=== PATIENT | male | born 1995 | race Two or more races ===

== ENCOUNTER 2020-09-22 15:47 | Inpatient (IN) | payer MEDICAID ==
[~2020-09-22] VITALS: Ht 172.7 cm; Wt 100.7 kg
[2020-09-22] MEDS ORDERED: InsuLIN REG 1unit/0.01ml Soln (100units/ml) IV ONE ×2 (16:30→19:45)
[2020-09-22] MEDS ORDERED: SODIUM CHLORIDE 0.9% 1,000 ML IV ONE (16:30)
[2020-09-22 16:47] LABS: Basophils # (auto) 0.1 10 ^3/uL (0-0.2); Eosinophils # (auto) 0.2 10 ^3/uL (0-0.8); Hemoglobin 15.7 g/dL (13.5-17.5)
[2020-09-22 16:49] LABS: Basophils % (auto) 0.9 % (0.0-2.0); Eosinophils % (auto) 2.3 % (0.0-7.0); Lymphocytes # (auto) 1.7 10 ^3/uL (0.4-5.4); Lymphocytes % (auto) 23.7 % (10.0-50.0); Mean Corpuscular Hemoglobin 34.9 pg (28.0-32.0); Mean Corpuscular Hgb Conc. 36.6 g/dL (32.0-36.0); Mean Corpuscular Volume 95.2 fL (80.0-100.0); Monocytes # (auto) 0.7 10 ^3/uL (0-1.3); Monocytes % (auto) 9.9 % (0.0-12.0); Neutrophils # (auto) 4.6 10 ^3/uL (1.6-8.6); Neutrophils % (auto) 63.2 % (37.0-80.0); Nucleated Red Blood Cells % 0.2 %; Platelet Count (auto) 268 10^3/uL (140-450); Red Blood Cells 4.51 10^6/uL (4.5-5.90); Red Cell Distribution Width 13.2 % (11.8-14.3); White Blood Cell 7.3 10^3/uL (4.4-10.8)
[2020-09-22 16:53] LABS: Albumin 3.4 g/dL (3.4-5.0); Potassium 4.6 mmol/L (3.5-5.1)
[2020-09-22 17:01] LABS: Bilirubin, Total 0.8 mg/dL (0.2-1.0)
[2020-09-22 18:02] LABS: BUN/Creatinine Ratio 6.3; Calcium 7.5 mg/dL (8.5-10.1)
[2020-09-22] MEDS ORDERED: DEXTROSE (50%) 50ML SYRG IV PRN ×2 (18:30→19:45)
[2020-09-22] MEDS ORDERED: SODIUM CHLORIDE 0.9% 1,000 ML IV SCH ×3 (18:30→23:45)
[2020-09-22] MEDS ORDERED: INSULIN LANTUS (GLARGINE) 1 /0.01ml (100units/ml) SC ONE (18:30)
[2020-09-22] MEDS ORDERED: InsuLIN R (HUMAN) 100 UNITS in SODIUM CHL 0.9% 99 ML IV SCH (18:30)
[2020-09-22 19:04] LABS: Basophils # (auto) 0.1 10 ^3/uL (0-0.2); Basophils % (auto) 0.8 % (0.0-2.0); Eosinophils # (auto) 0.2 10 ^3/uL (0-0.8); Eosinophils % (auto) 2.3 % (0.0-7.0); Hematocrit 45.7 % (41.0-53.0); Hemoglobin 16.1 g/dL (13.5-17.5); Lymphocytes # (auto) 1.9 10 ^3/uL (0.4-5.4); Lymphocytes % (auto) 26.4 % (10.0-50.0); Mean Corpuscular Hemoglobin 33.3 pg (28.0-32.0); Mean Corpuscular Hgb Conc. 35.2 g/dL (32.0-36.0); Mean Corpuscular Volume 94.6 fL (80.0-100.0); Monocytes # (auto) 0.6 10 ^3/uL (0-1.3); Monocytes % (auto) 8.4 % (0.0-12.0); Neutrophils # (auto) 4.4 10 ^3/uL (1.6-8.6); Neutrophils % (auto) 62.1 % (37.0-80.0); Nucleated Red Blood Cells % 0.5 %; Platelet Count (auto) 228 10^3/uL (140-450); Red Blood Cells 4.83 10^6/uL (4.5-5.90); White Blood Cell 7.1 10^3/uL (4.4-10.8)
[2020-09-22 19:18] LABS: Magnesium 2.4 mg/dL (1.6-2.6); Potassium 4.5 mmol/L (3.5-5.1)
[2020-09-22 19:22] LABS: Phosphorus 1.7 mg/dL (2.5-4.90)
[2020-09-22 19:26] LABS: BUN/Creatinine Ratio 9.1; Calcium 7.5 mg/dL (8.5-10.1)
[2020-09-22] MEDS ORDERED: MORPHINE SULF INJ 2 MG/ML SYRINGE 1ML IV PRN ×2 (19:45)
[2020-09-22] MEDS: ACCU-CHEK COMFORT CURVE STRIP VI SCH ×3 (19:45→22:30)
[2020-09-22] MEDS ORDERED: ACETAMINOPHEN 500 MG TAB PO PRN (19:45)
[2020-09-22] MEDS ORDERED: NITROGLYCERIN 0.4 MG SL TAB SL PRN (19:45)
[2020-09-22] MEDS ORDERED: hydrALAZINE HCL 20 MG/ML VL IV PRN (19:45)
[2020-09-22] MEDS ORDERED: LORazepam 0.5 MG TAB PO PRN (19:45)
[2020-09-22] MEDS: SODIUM CHLORIDE 0.9% 1,000 ML IV SCH ×2 (20:05→21:45)
[2020-09-22 22:32] VITALS: BP 141/83
--- NOTE | 2020-09-22 22:32 | NUR ---
Telemetry admit from [facility] admitted to Telemetry unit. Patient oriented to BRAXTON RYAN RN primary RN, unit, room, bed, and unit policies regarding patient care and visiting hours. Patient now on continuous telemetry monitoring, tele box #29 and telemetry reading on arrival to unit is sinus tachy 100. Patient placed on bedside oxygen, weighed by bed scale and encouraged to call if they need something. Safety measures maintained by keeping the bed locked in lowest position, 2 side rails up, personal items and call light within reach. All questions and concerns addressed, patient verbalized understanding.
[2020-09-22 22:55] VITALS: BP 141/83
[2020-09-22 23:14] LABS: Urine Bacteria FEW /hpf (None Seen); Urine Blood TRACE /uL (Negative); Urine Mucus FEW (None Seen); Urine WBC 1 /hpf (0 - 3)
[2020-09-22 23:25] LABS: Alcohol, Urine < 3.0 mg/dL (0-10); Amphetamine Screen, Urine NEGATIVE (NEGATIVE); Barbiturate Scree,Urine NEGATIVE (NEGATIVE); Benzodiazephine Screen, Urine NEGATIVE (NEGATIVE); Cannabinoid Screen, Urine NEGATIVE (NEGATIVE); Cocaine Screen, Urine NEGATIVE (NEGATIVE); Opiate Scree,Urine NEGATIVE (NEGATIVE); Phencyclidine Screen, Urine NEGATIVE (NEGATIVE)
--- NOTE | 2020-09-23 | NUR ---
Paged Hospitalist Patient has no sliding scale ordered
[2020-09-23] MEDS: ACCU-CHEK COMFORT CURVE STRIP VI SCH ×3 (00:25→11:32)
--- NOTE | 2020-09-23 00:25 | NUR ---
Spoke to Hospitalist Ordered Moderate ACHS sliding scale
[2020-09-23] MEDS ORDERED: SODIUM CHLORIDE 0.9% 1,000 ML IV SCH (00:30)
[2020-09-23] MEDS: SODIUM CHLORIDE 0.9% 1,000 ML IV SCH ×2 (01:45→08:25)
[2020-09-23 02:20] LABS: Potassium 4.3 mmol/L (3.5-5.1)
[2020-09-23 02:25] LABS: BUN/Creatinine Ratio 7.2
[2020-09-23] MEDS ORDERED: INSU100I43 SC ×2 (03:32→10:29)
[2020-09-23] MEDS ORDERED: INSLANTI SC ×2 (03:32→10:29)
[2020-09-23 05:00] VITALS: BP 136/81
[2020-09-23 06:03] LABS: Calcium 7.4 mg/dL (8.5-10.1)
[2020-09-23 06:17] LABS: BUN/Creatinine Ratio 7.8
[2020-09-23] MEDS: InsuLIN REG 1unit/0.01ml Soln (100units/ml) SC SCH ×2 (06:39→11:42)
--- NOTE | 2020-09-23 07:30 | NUR ---
Opening Shift Note Assumed care of patient, who is alert and oriented x4. Respirations are even and unlabored. No S/S of distress/SOB or pain. Bed is low, locked with 2x side rails up. Call light is within reach. Instructed on POC and to call for assist PRN, will continue to monitor for changes Q1hr and PRN.
[2020-09-23 08:43] VITALS: BP 122/87
[2020-09-23 09:28] LABS: Calcium 7.3 mg/dL (8.5-10.1); Potassium 3.6 mmol/L (3.5-5.1)
[2020-09-23 09:33] LABS: BUN/Creatinine Ratio 5.9
[2020-09-23] MEDS ORDERED: ENOXAPARIN SOD 40 MG/0.4 ML SYRINGE SC SCH (10:00)
[2020-09-23] MEDS ORDERED: INSULIN LANTUS (GLARGINE) 1 /0.01ml (100units/ml) SC SCH (10:00)
[2020-09-23] MEDS ORDERED: PANTOPRAZOLE 40 MG TAB PO SCH (10:00)
[2020-09-23] MEDS ORDERED: DOCUSATE CALCIUM 240 MG CAP PO SCH (10:00)
[2020-09-23] MEDS ORDERED: LANC-347 XX (10:31)
[2020-09-23 12:45] VITALS: BP 122/87
[2020-09-23 13:02] VITALS: BP 142/90
--- NOTE | 2020-09-23 14:13 | NUR ---
Discharge instructions given as ordered. Encourage to follow up with PMD as instructed. All questions and concerns addressed. Patient verbalized understanding. Educated patient on importance of not stopping insulin medication. Aware that he must follow up with [facility] post discharge clinic or his own PCP. Medication reconciliation form completed and copy given to patient. IV removed with catheter intact, pressure dressing applied. Telemetry unit returned to ICU. Patient ambulated to family vehicle with all personal belongings, accompanied by staff. No distress noted at time of departure.
[2020-09-23 14:19] LABS: Calcium 7.5 mg/dL (8.5-10.1); Potassium 3.8 mmol/L (3.5-5.1)
[2020-09-23 14:41] LABS: BUN/Creatinine Ratio 5.9
[2020-09-23] MEDS ORDERED: InsuLIN REG 1unit/0.01ml Soln (100units/ml) SC SCH (22:00)
== END 2020-09-23 14:15 | disposition home or self-care (01) | DRG 420 ==
LOC: ER 15:47 → ICU CENTRL 15:48 → TELE-CENTR 22:30
PROVIDERS: ADMIT Family Medicine; ATTEND Family Medicine
DX: E10.10 Type 1 diabetes mellitus with ketoacidosis without coma (principal); E83.39 Other disorders of phosphorus metabolism; E83.51 Hypocalcemia; E87.1 Hypo-osmolality and hyponatremia; Z79.4 Long term (current) use of insulin; F10.99 Alcohol use, unspecified with unspecified alcohol-induced disorder; Y90.9 Presence of alcohol in blood, level not specified
CPT/HCPCS: 36415; 36600; 71045; 80048; 80053; 80307; 81001; 82010; 82805; 82962; 83036; 83735; 83930; 84100; 85025; 96361; 96374; 96375; 99291; G0378; J1815

== ENCOUNTER 2021-01-11 20:40 | Inpatient (IN) | payer MEDICAID ==
[~2021-01-11] VITALS: Ht 172.7 cm; Wt 91.4 kg
[~2021-01-11 20:40] MED LIST: INSLANTI SC; INSU100I43 SC; LANC-347 XX
[2021-01-11] MEDS ORDERED: SODIUM CHLORIDE 0.9% 1,000 ML IV ONE (22:45)
[2021-01-11 22:57] LABS: Basophils # (auto) 0.1 10 ^3/uL (0-0.2); Basophils % (auto) 0.4 % (0.0-2.0); Eosinophils # (auto) 0 10 ^3/uL (0-0.8); Lymphocytes # (auto) 0.9 10 ^3/uL (0.4-5.4); Lymphocytes % (auto) 7.1 % (10.0-50.0); Mean Corpuscular Hemoglobin 32.2 pg (28.0-32.0); Mean Corpuscular Hgb Conc. 34.1 g/dL (32.0-36.0); Mean Corpuscular Volume 94.3 fL (80.0-100.0); Monocytes # (auto) 2.1 10 ^3/uL (0-1.3); Neutrophils # (auto) 10.1 10 ^3/uL (1.6-8.6); Neutrophils % (auto) 76.5 % (37.0-80.0); Nucleated Red Blood Cells % 0.2 %; Platelet Count (auto) 143 10^3/uL (140-450); Red Cell Distribution Width 15.6 % (11.8-14.3); White Blood Cell 13.2 10^3/uL (4.4-10.8)
[2021-01-11 23:07] LABS: Albumin 3.6 g/dL (3.4-5.0); Calcium 9.5 mg/dL (8.5-10.1); Potassium 3.6 mmol/L (3.5-5.1)
[2021-01-11 23:16] LABS: Bilirubin, Total 0.9 mg/dL (0.2-1.0); Total Protein 8.8 g/dL (6.4-8.2)
[2021-01-11] MEDS ORDERED: IODIXANOL 320MG/ML 100ML BTL IV ONE (23:19)
[2021-01-11 23:40] LABS: BUN/Creatinine Ratio 5.7
[2021-01-11] MEDS ORDERED: InsuLIN REG 1unit/0.01ml Soln (100units/ml) IV ONE (23:45)
[2021-01-12] VITALS (67 sets, daily range): BP systolic 85–125; BP diastolic 48–76
[2021-01-12 00:19] LABS: Urine Bacteria FEW /hpf (None Seen); Urine Blood 2+ /uL (Negative); Urine Specific Gravity 1.027 (1.001-1.035); Urine WBC 1 /hpf (0 - 3)
[2021-01-12] MEDS ORDERED: InsuLIN R (HUMAN) 100 UNITS in SODIUM CHL 0.9% 99 ML IV SCH ×2 (00:30→04:30)
[2021-01-12] MEDS ORDERED: SODIUM CHLORIDE 0.9% 1,000 ML IV ONE (00:30)
[2021-01-12] MEDS ORDERED: ONDANSETRON HCL 4 MG/2 ML VIAL IV ONE (00:30)
[2021-01-12] MEDS ORDERED: DEXTROSE (50%) 50ML SYRG IV PRN (00:30)
[2021-01-12] MEDS ORDERED: InsuLIN REG 1unit/0.01ml Soln (100units/ml) ONE (00:51)
[2021-01-12] MEDS ORDERED: MORPHINE SULF INJ 2 MG/ML SYRINGE 1ML IV PRN (01:30)
[2021-01-12] MEDS ORDERED: NITROGLYCERIN 0.4 MG SL TAB SL PRN (01:30)
[2021-01-12] MEDS ORDERED: ACCU-CHEK COMFORT CURVE STRIP VI SCH (01:30)
[2021-01-12] MEDS ORDERED: POTASSIUM CHL 20MEQ/100ML 100 ML IV ONE ×2 (02:30→06:42)
[2021-01-12 03:14] LABS: BUN/Creatinine Ratio 7.4; Calcium 8.9 mg/dL (8.5-10.1); Magnesium 2.2 mg/dL (1.6-2.6); Phosphorus 1.1 mg/dL (2.5-4.90)
[2021-01-12] MEDS: ACCU-CHEK COMFORT CURVE STRIP VI SCH ×13 (04:00→22:58)
[2021-01-12] MEDS: D5W/SOD CHL 0.45% 1,000 ML IV SCH ×3 (04:30→17:52)
[2021-01-12 04:33] LABS: Alcohol, Urine < 3.0 mg/dL (0-10); Amphetamine Screen, Urine NEGATIVE (NEGATIVE); Barbiturate Scree,Urine NEGATIVE (NEGATIVE); Benzodiazephine Screen, Urine NEGATIVE (NEGATIVE); Cannabinoid Screen, Urine NEGATIVE (NEGATIVE); Cocaine Screen, Urine NEGATIVE (NEGATIVE); Opiate Scree,Urine NEGATIVE (NEGATIVE); Phencyclidine Screen, Urine NEGATIVE (NEGATIVE)
[2021-01-12 08:32] LABS: Basophils # (auto) 0 10 ^3/uL (0-0.2); Basophils % (auto) 0.3 % (0.0-2.0); Eosinophils # (auto) 0 10 ^3/uL (0-0.8); Hematocrit 41.5 % (41.0-53.0); Hemoglobin 14.4 g/dL (13.5-17.5); Lymphocytes # (auto) 0.6 10 ^3/uL (0.4-5.4); Lymphocytes % (auto) 5.8 % (10.0-50.0); Mean Corpuscular Hgb Conc. 34.7 g/dL (32.0-36.0); Mean Corpuscular Volume 92.1 fL (80.0-100.0); Monocytes # (auto) 1.8 10 ^3/uL (0-1.3); Monocytes % (auto) 15.8 % (0.0-12.0); Neutrophils # (auto) 8.6 10 ^3/uL (1.6-8.6); Neutrophils % (auto) 78.1 % (37.0-80.0); Nucleated Red Blood Cells % 0.1 %; Platelet Count (auto) 108 10^3/uL (140-450); Red Blood Cells 4.51 10^6/uL (4.5-5.90); Red Cell Distribution Width 15.2 % (11.8-14.3); White Blood Cell 11.1 10^3/uL (4.4-10.8)
[2021-01-12 08:35] LABS: Calcium 9.3 mg/dL (8.5-10.1); Magnesium 2.1 mg/dL (1.6-2.6); Potassium 3.5 mmol/L (3.5-5.1)
[2021-01-12 08:44] LABS: BUN/Creatinine Ratio 6.7
[2021-01-12] MEDS ORDERED: SODIUM PHOSPHATES 24 MEQ in SODIUM CHL 0.9% 100 ML IV ONE (09:00)
[2021-01-12] MEDS: ONDANSETRON HCL 4 MG/2 ML VIAL IV PRN ×3 (09:04→20:27)
[2021-01-12] MEDS: PANTOPRAZOLE 40 MG/10 ML VIAL INJ IV SCH (09:04)
[2021-01-12] MEDS: MORPHINE SULF INJ 2 MG/ML SYRINGE 1ML IV PRN ×3 (09:05→20:27)
[2021-01-12] MEDS: InsuLIN R (HUMAN) 100 UNITS in SODIUM CHL 0.9% 99 ML IV SCH ×4 (09:22→22:59)
[2021-01-12] MEDS: SODIUM CHLORIDE 0.9% 1,000 ML IV SCH ×2 (12:06→17:25)
[2021-01-12 12:49] LABS: BUN/Creatinine Ratio 6.7; Calcium 9.4 mg/dL (8.5-10.1); Potassium 3.2 mmol/L (3.5-5.1)
[2021-01-12 18:17] LABS: BUN/Creatinine Ratio 7.3; Calcium 9.2 mg/dL (8.5-10.1)
[2021-01-12 18:19] LABS: Potassium 2.9 mmol/L (3.5-5.1)
[2021-01-12] MEDS: POTASSIUM CHL 20MEQ/100ML 100 ML IV SCH ×2 (20:00→22:16)
[2021-01-12 22:26] LABS: BUN/Creatinine Ratio 7.4; Calcium 9.6 mg/dL (8.5-10.1)
[2021-01-12 22:32] LABS: Potassium 2.8 mmol/L (3.5-5.1)
[2021-01-13] VITALS (83 sets, daily range): BP systolic 90–131; BP diastolic 48–90
[2021-01-13] MEDS: POTASSIUM CHL 20MEQ/100ML 100 ML IV SCH
[2021-01-13] MEDS: SODIUM CHLORIDE 0.9% 1,000 ML IV SCH ×4 (00:05→22:00)
[2021-01-13] MEDS: InsuLIN R (HUMAN) 100 UNITS in SODIUM CHL 0.9% 99 ML IV SCH ×10 (00:30→23:04)
[2021-01-13] MEDS: ACCU-CHEK COMFORT CURVE STRIP VI SCH ×16 (00:30→22:30)
[2021-01-13 04:42] LABS: Basophils # (auto) 0 10 ^3/uL (0-0.2); Basophils % (auto) 0.1 % (0.0-2.0); Eosinophils # (auto) 0 10 ^3/uL (0-0.8); Eosinophils % (auto) 0.2 % (0.0-7.0); Hematocrit 39.4 % (41.0-53.0); Hemoglobin 13.8 g/dL (13.5-17.5); Lymphocytes # (auto) 0.9 10 ^3/uL (0.4-5.4); Lymphocytes % (auto) 9.5 % (10.0-50.0); Mean Corpuscular Hgb Conc. 35.1 g/dL (32.0-36.0); Mean Corpuscular Volume 94.2 fL (80.0-100.0); Monocytes # (auto) 1.6 10 ^3/uL (0-1.3); Neutrophils # (auto) 7.3 10 ^3/uL (1.6-8.6); Neutrophils % (auto) 74.2 % (37.0-80.0); Nucleated Red Blood Cells % 0.1 %; Platelet Count (auto) 101 10^3/uL (140-450); Red Blood Cells 4.19 10^6/uL (4.5-5.90); Red Cell Distribution Width 15.5 % (11.8-14.3); White Blood Cell 9.9 10^3/uL (4.4-10.8)
[2021-01-13 05:49] LABS: Calcium 9.5 mg/dL (8.5-10.1); Magnesium 2.3 mg/dL (1.6-2.6); Potassium 3.3 mmol/L (3.5-5.1)
[2021-01-13 05:59] LABS: BUN/Creatinine Ratio 7.8
[2021-01-13 06:02] LABS: Phosphorus 0.7 mg/dL (2.5-4.90)
[2021-01-13] MEDS: D5W/SOD CHL 0.45% 1,000 ML IV SCH ×4 (08:53→21:00)
[2021-01-13] MEDS ORDERED: POTASSIUM PHOSPHATE IV ONE ×4 (09:30)
[2021-01-13] MEDS ORDERED: SODIUM CHL 0.9% IV ONE ×4 (09:30)
[2021-01-13] MEDS: PANTOPRAZOLE 40 MG/10 ML VIAL INJ IV SCH (10:40)
[2021-01-13 16:46] LABS: BUN/Creatinine Ratio 9.1; Calcium 8.9 mg/dL (8.5-10.1); Magnesium 2.1 mg/dL (1.6-2.6); Phosphorus 1.8 mg/dL (2.5-4.90)
[2021-01-13 22:34] LABS: BUN/Creatinine Ratio 6.8; Calcium 8.4 mg/dL (8.5-10.1)
[2021-01-13 22:43] LABS: Potassium 2.9 mmol/L (3.5-5.1)
[2021-01-14] VITALS (37 sets, daily range): BP systolic 105–135; BP diastolic 56–90
[2021-01-14] MEDS: InsuLIN R (HUMAN) 100 UNITS in SODIUM CHL 0.9% 99 ML IV SCH ×5 (00:37→06:53)
[2021-01-14] MEDS: POTASSIUM CHL 20MEQ/100ML 100 ML IV SCH ×5 (01:21→16:00)
[2021-01-14] MEDS: ACCU-CHEK COMFORT CURVE STRIP VI SCH ×10 (01:30→21:40)
[2021-01-14] MEDS: SODIUM CHLORIDE 0.9% 1,000 ML IV SCH (02:45)
[2021-01-14] MEDS: D5W/SOD CHL 0.45% 1,000 ML IV SCH (03:40)
[2021-01-14] MEDS: PANTOPRAZOLE 40 MG/10 ML VIAL INJ IV SCH (10:14)
[2021-01-14 11:00] LABS: BUN/Creatinine Ratio 4.8; Calcium 8.5 mg/dL (8.5-10.1); Magnesium 1.9 mg/dL (1.6-2.6); Phosphorus 1.8 mg/dL (2.5-4.90)
[2021-01-14 11:01] LABS: Potassium 2.9 mmol/L (3.5-5.1)
[2021-01-14] MEDS ORDERED: POTASSIUM CHL 20 Meq TABLET PO ONE (11:15)
[2021-01-14] MEDS ORDERED: D5W/SOD CHL 0.45% 1,000 ML IV SCH (11:15)
[2021-01-14] MEDS ORDERED: SODIUM PHOSPHATES 20 MEQ in SODIUM CHL 0.9% 100 ML IV ONE (11:15)
[2021-01-14] MEDS ORDERED: DEXTROSE (50%) 50ML SYRG IV PRN ×2 (11:30)
[2021-01-14] MEDS ORDERED: ACCU-CHEK COMFORT CURVE STRIP VI SCH (11:30)
[2021-01-14] MEDS ORDERED: INSULIN LANTUS (GLARGINE) 1 /0.01ml (100units/ml) SC ONE (11:30)
[2021-01-14] MEDS ORDERED: InsuLIN REG 1unit/0.01ml Soln (100units/ml) SC SCH ×3 (11:30→22:00)
[2021-01-14] MEDS: SOD CHL 0.45% 1,000 ML IV SCH ×2 (12:15→20:36)
[2021-01-14] MEDS: InsuLIN REG 1unit/0.01ml Soln (100units/ml) SC SCH ×2 (12:17→16:42)
[2021-01-15] MEDS: SOD CHL 0.45% 1,000 ML IV SCH ×2 (03:44→11:15)
[2021-01-15 05:00] VITALS: BP 137/86
[2021-01-15] MEDS: InsuLIN REG 1unit/0.01ml Soln (100units/ml) SC SCH ×3 (06:20→17:27)
[2021-01-15] MEDS: ACCU-CHEK COMFORT CURVE STRIP VI SCH ×3 (06:20→17:28)
[2021-01-15 06:42] LABS: Albumin 2.6 g/dL (3.4-5.0); Calcium 9.4 mg/dL (8.5-10.1); Potassium 3.4 mmol/L (3.5-5.1)
[2021-01-15 06:57] LABS: BUN/Creatinine Ratio 11.8; Bilirubin, Total 0.6 mg/dL (0.2-1.0)
[2021-01-15 07:30] VITALS: BP 134/83
[2021-01-15] MEDS: PANTOPRAZOLE 40 MG/10 ML VIAL INJ IV SCH (08:57)
[2021-01-15] MEDS ORDERED: INSULIN LANTUS (GLARGINE) 1 /0.01ml (100units/ml) SC SCH ×2 (10:00→22:00)
[2021-01-15 13:00] VITALS: BP 124/79
[2021-01-15 17:04] VITALS: BP 131/84
== END 2021-01-15 19:22 | disposition home or self-care (01) | DRG 420 ==
LOC: ER 20:40 → TELE 20:41 → ICU WEST 01-12 04:02 → CENTRAL 01-14 17:41 → TELE-CENTR 01-14 18:00
PROVIDERS: ADMIT Hospitalist; ATTEND Hospitalist
DX: E11.10 Type 2 diabetes mellitus with ketoacidosis without coma (principal); K85.90 Acute pancreatitis without necrosis or infection, unspecified; R65.10 Systemic inflammatory response syndrome (SIRS) of non-infectious origin without acute organ dysfunction; N17.9 Acute kidney failure, unspecified; E66.01 Morbid (severe) obesity due to excess calories; Z20.822 Contact with and (suspected) exposure to COVID-19; Z79.4 Long term (current) use of insulin; Z71.3 Dietary counseling and surveillance; Z68.30 Body mass index [BMI] 30.0-30.9, adult
CPT/HCPCS: 36415; 36600; 71045; 74176; 80048; 80053; 80307; 81001; 82010; 82150; 82805; 82962; 83036; 83605; 83690; 83735; 83930; 84100; 85025; 87081; 87426; 93005; 96361; 96365; 96375; C9113; G0378; J1815; J2405; J3480; Q9967

== ENCOUNTER 2022-03-21 16:24 | Emergency (ER) | payer MEDICAID ==
[~2022-03-21] VITALS: Ht 172.7 cm; Wt 86.2 kg
[2022-03-21 16:24] VITALS: BP 153/91
== END 2022-03-21 17:18 | disposition home or self-care (01) ==
LOC: ER 16:24
DX: S60.022A Contusion of left index finger without damage to nail, initial encounter (principal); E11.9 Type 2 diabetes mellitus without complications; W22.8XXA Striking against or struck by other objects, initial encounter; Y93.89 Activity, other specified; Y92.89 Other specified places as the place of occurrence of the external cause; Y99.8 Other external cause status
CPT/HCPCS: 73140

== ENCOUNTER 2025-04-28 15:48 | Inpatient (IN) | payer MEDICAID, OTHER ==
[~2025-04-28] VITALS: Ht 172.7 cm; Wt 62.5 kg
--- NOTE | 2025-04-28 16:04 | ED.PDOC ---
GI ASSESSMENT HPI Comments HPI: This is a 29 year old male presenting to the ED with chief complaint of pancreatitis flare up. Patient reports that he has been experiencing bilateral lower rib pain since this morning, which is usually how his pancreatitis flare ups present as. Patient relays that he has drank heavily recently along with having high blood glucose, both causing him flare ups. Patient states he has been compliant with his DM medication and his recent BG was at 133. Patient notes he had associated nausea and and yellow colored vomit. Patient denies any abdominal pain, fever, chills, diarrhea, chest pain, SOB, or headache. Patient was hypotensive in triage and tachycardic. Fluids were initiated. Sepsis protocol initiated. Initial Vitals BP: 86/64 HR: 131 RR: 18 O2 Sat: 100% Temp: 98.1F Past Medical history: DM, Chronic Pancreatitis, anxiety, alcohol abuse Past Surgical history: Empyema resection Medications: Insulin, Gabapentin Social History: Daily ETOH use. Denies smoking and drug use. Allergies: NKDA ryan: HPI: Poor Historian. REVIEW OF SYSTEMS: CONSTITUTIONAL: Denies acute: fever, diaphoresis, chills, HEAD: Denies acute: headache, photophobia Eyes: Denies acute: Double vision, vision loss, eye pain, eye discharge. EARS: Denies acute: tinnitus, hearing loss, ear discharge, ear pain, THROAT: Denies acute: sore throat, swelling, difficulty swallowing , pain with swallowing, change in voice. NECK: Denies acute: neck pain, neck swelling, stiff neck. HEART: Denies acute : chest pain, palpitations, LUNGS: Denies acute: SOB, wheezing, cough, hemoptysis ABDOMEN: Denies acute: diarrhea, melena , hematemesis, hematochezia SKIN: Denies acute: rash, redness, lesions, itchiness. EXTREMITIES: Denies acute: calf pain, numbness, tingling, weakness, denies pain in extremity. Denies acute: Low back pain. Neuro: Denies acute: focal neurological deficit, motor or sensory focal neurological deficit, tremors, seizure like activity, confusion, dizziness, change in mental status, loss of bowel or bladder function, cauda equina like symptoms. : Denies acute: dysuria, hematuria, flank pain, increase in urinary frequency. PSYCH: Denies acute: hallucination, suicidal ideation, homicidal ideation. PHYSICAL EXAM: General: ---[id number]-----acute distress, awake and alert. Head: normocephalic, atraumatic. Neck: supple, trachea is midline, no swelling. Throat: Normal phonation. Eyes:, no erythema, no purulent discharge, no proptosis, no icterus. Heart: regular tachycardic, no significant murmur appreciated. Lungs: no apparent respiratory distress, Able to speak in full sentences. No wheezing, no rhonchi, no crackles. No stridors Clear to auscultation bilaterally. Abdomen: No epigastric pain to palpation, non distended, soft, no guarding, no rebound, + bowel sounds. Patient points specifically to lateral ribcage angles where his pain is. Neuro: Awake, Alert, oriented to name, self, situation, follows commands GCS=15. Speech is normal. Skin: no petechia, no purpura, no cyanosis, non-pale, not jaundice. Lower extremities: --no - Pitting edema no deformity, no focal swelling, no calf TTP. Makes eye contact. moves all four extremities. Face: no apparent facial droop. ED COURSE: DISCLAIMER: This medical document was created using an electronic medical record system with voice recognition software and computerized dictation system. Although this document has been carefully reviewed, there might still be some phonetic and typographical errors. Occasional wrong-word or "sound-alike" substitutions may have occurred due to the inherent limitations of voice recognition software. These areas are purely typographical due to imperfections of the software programs and do not reflect any compromise in the patient's medical care. Please read the chart carefully and recognize, using context, where these substitutions have occurred. Time Seen by MD: 16:01 Primary Care Provider: JONA Reviewed Notes: Medications, Allergies Allergies: Coded Allergies: NO KNOWN ALLERGIES (Unverified , 09/22/20) Home Meds Active Scripts Lancets (Freestyle Lancets) Lancets Mis, UNIT XX PRN PRN, #90 3 Refills Prov:CADEN PEREZ MD 09/23/20 Insulin Lispro (Insulin Lispro) 100 Unit/Ml Inj, 10 UNIT SC ACHS for 90 Days, #90 INJ Please take lispro as per sliding scale Prov:CADEN PEREZ MD 09/23/20 Insulin Glargine (Lantus) 100 Unit/Ml Inj, 10 UNIT SC BID for 90 Days, #90 INJ Prov:CADEN PEREZ MD 09/23/20 Information Source: Patient Mode of Arrival: Ambulatory Was a procedure done? Was a procedure done?: No GI differential Dx Differential Diagnosis: Other (DDX include but not limited to diverticulitis, colitis, gastroenteritis, acute abdomen, SBO, enteritis, constipation, volvulus, appendicitis, Gallbladder disease, choledocolithiasis, ascending cholangitis, pancreatitis, intraAbdominal mass/neoplasm, hepatitis, UTI, pylonephritis, kidney stone, aneurysm, dissection, Inflammatory bowel disease, gastroparesis, ischemic bowel.) X-Ray, Labs, Meds, VS Vital Signs Date Time Temp Pulse Resp B/P (MAP) Pulse Ox O2 Delivery O2 Flow Rate FiO2 04/28/25 20:00 94 04/28/25 19:59 121/84 04/28/25 19:38 98.1 78 18 121/78 (92) 96 98.1 04/28/25 19:38 78 18 96 Room Air* 0 21 04/28/25 17:26 98.8 106 16 100/74 (83) 100 98.8 04/28/25 16:39 109 22 137/115 (122) 100 04/28/25 15:57 98.1 134 18 86/64 (71) 100 98.1 04/28/25 15:56 131 Lab Test 04/28/25 21:25 04/28/25 18:16 04/28/25 17:20 04/28/25 16:37 Range/Units POC Glucose 224 H 154 H 70-106 mg/dl Lactic Acid Level 5.9 *H 0.4-2.0 mmol/L Urine Color Light-yellow Yellow Urine Clarity Clear Clear Urine pH 5.5 5.0-9.0 Urine Specific Mikado 1.010 1.001-1.035 Urine Protein Negative Negative Urine Ketones Negative Negative Urine Blood Negative Negative /uL Urine Nitrite Negative Negative Urine Bilirubin Negative Negative Urine Urobilinogen Normal Negative mg/dL Urine Leukocyte Esterase Negative Negative /uL Urine RBC 1 0 - 3 /hpf Urine Microscopic WBC < 1 0-3 /HPF Urine Squamous Epithelial Cells None seen <5 /hpf Urine Bacteria None seen None Seen /hpf Urine Glucose 4+ H Normal mg/dL Urine Opiates Screen Neg NEGATIVE Urine Fentanyl Screen Neg NEGATIVE Urine Barbiturates Screen Neg NEGATIVE Urine Phencyclidine Screen Neg NEGATIVE Urine Amphetamines Screen Neg NEGATIVE Urine Benzodiazepines Screen Neg NEGATIVE Urine Cocaine Screen Neg NEGATIVE Urine Cannabinoids Screen Neg NEGATIVE Test 04/28/25 16:24 Range/Units White Blood Count 4.3 L 4.4-10.8 10^3/uL Red Blood Count 3.59 L 4.5-5.90 10^6/uL Hemoglobin 11.5 L 13.5-17.5 g/dL Hematocrit 32.7 L 41.0-53.0 % Mean Corpuscular Volume 90.9 80.0-100.0 fL Mean Corpuscular Hemoglobin 32.0 28.0-32.0 pg Mean Corpuscular Hemoglobin Concent 35.1 32.0-36.0 g/dL Red Cell Distribution Width 19.5 H 11.8-14.3 % Platelet Count 269 140-450 10^3/uL Mean Platelet Volume 7.6 6.9-10.8 fL Neutrophils (%) (Auto) 34.5 L 37.0-80.0 % Lymphocytes (%) (Auto) 51.2 H 10.0-50.0 % Monocytes (%) (Auto) 12.4 H 0.0-12.0 % Eosinophils (%) (Auto) 0.5 0.0-7.0 % Basophils (%) (Auto) 1.4 0.0-2.0 % Neutrophils # (Auto) 1.5 L 1.6-8.6 10 ^3/uL Lymphocytes # (Auto) 2.2 0.4-5.4 10 ^3/uL Monocytes # (Auto) 0.5 0-1.3 10 ^3/uL Eosinophils # (Auto) 0 0-0.8 10 ^3/uL Basophils # (Auto) 0.1 0-0.2 10 ^3/uL Nucleated Red Blood Cells 0.1 % Prothrombin Time 11.4 9.3-11.8 sec Prothrombin Time INR 1.08 0.9-1.15 Activated Partial Thromboplast Time 32.0 24.5-34.5 SEC Sodium Level 134 L 136-145 mmol/L Potassium Level 3.9 3.5-5.1 mmol/L Chloride Level 97 L 98-107 mmol/L Carbon Dioxide Level 22 20-31 mmol/L Anion Gap 15 5-15 Blood Urea Nitrogen 12 9-23 mg/dL Creatinine 0.89 0.700-1.30 mg/dL Glomerular Filtration Rate Calc 118 >90 mL/min BUN/Creatinine Ratio 13.5 10.0-20.0 Serum Glucose 151 H 74-106 mg/dL Lactic Acid Level 7.2 *H 0.4-2.0 mmol/L Calcium Level 8.9 8.7-10.4 mg/dL Magnesium Level 2.1 1.6-2.6 mg/dL Total Bilirubin 1.9 H 0.2-1.0 mg/dL Aspartate Amino Transferase (AST) 147 H <34 U/L Alanine Aminotransferase (ALT) 58 H 7-40 U/L Alkaline Phosphatase 403 H 46-116 U/L Troponin I High Sensitivity 8 </=54 ng/L Total Protein 7.0 5.7-8.2 g/dL Albumin 3.6 3.2-4.8 g/dL Lipase 64 H 12-53 U/L Current Medications Medications (Trade) Dose Ordered Sig/Dejah Route Start Time Stop Time Status Last Admin Sodium Chloride 1,000 ml @ 1,000 mls/hr Q1H ONCE IV 04/28/25 16:00 04/28/25 16:59 DC 04/28/25 16:50 Sodium Chloride 1,000 ml @ 1,000 mls/hr Q1H ONCE IV 04/28/25 16:00 04/28/25 16:59 DC 04/28/25 17:15 Ondansetron HCl (Zofran) 8 mg ONCE ONCE IV 04/28/25 16:00 04/28/25 16:02 DC 04/28/25 17:03 Lactated Ringer's 2,200 ml @ 2,200 mls/hr ONCE ONCE IV 04/28/25 17:15 04/28/25 18:14 DC 04/28/25 18:20 Vancomycin HCl 200 ml @ 200 mls/hr ONCE ONCE IV 04/28/25 17:15 04/28/25 18:14 DC 04/28/25 18:20 Fentanyl Citrate 100 mcg ONCE ONCE IV 04/28/25 20:00 04/28/25 20:01 DC 04/28/25 19:59 [facility] [id number] [place] [id number] Ph: [phone] DIAGNOSTIC IMAGING Diagnostic Imaging Report : [id number] Signed PATIENT: LAWSON SOCCT: [id number] UNIT: [id number] : 1995 LOC: ER ROOM / BED: / AGE / SEX: 29 / M ADM STATUS: REG ER SERVICE 1556 ORDERING PHYSICIAN: MARSHA FARLEY DO PROCEDURE(s): ABPL - CT AB PEL WO CON-NO ORAL OR IV REASON: abd pain n/v ORDER NUMBER(s): [id number], ACCESSION NUMBER(s): [id number] Exam: CT CT AB PEL WO CON-NO ORAL OR IV History: abd pain n/v Comparison Study: CT ABD PELVIS WO CONTRAST on DOS: 01/11/21 TECHNIQUE: Multidetector CT of the abdomen was performed from lung bases to pubic symphysis. Imaging was performed without IV contrast. Axial, coronal and sagittal multiplanar reformats were obtained from the axial data set by the technologist. Radiation Dose Information: CT Dose: CTDI volume is 7.91 mGy. Dose-length product is 402.57 mGy*cm FINDINGS: Evaluation of solid organs is limited due to lack of intravenous contrast use. Findings: Lung Bases: No acute or significant lung base finding. Normal heart size. No pleural or pericardial effusion. Liver: The liver is normal in size. No focal lesions. Hepatic steatosis Gallbladder and Biliary Tree: No calcified gallstones Spleen: Unremarkable Pancreas: The pancreas is grossly normal in appearance. Adrenal Glands: Unremarkable Kidneys: Kidneys are grossly normal without calculi or hydronephrosis. Bladder: Urine distended bladder. 20 cm by 11.3 by 15.7 cm. No calcifications. Prostate does not appear enlarged Bowel: The stomach is grossly normal in appearance. Small bowel and colon are normal in caliber and distribution. The appendix is not visualized; however, no secondary findings of acute appendicitis identified. Ascites: Absent Lymphadenopathy: No mesenteric, retroperitoneal or periportal lymphadenopathy. Abdominal Wall and Mesentery: Unremarkable. Vasculature: The visualized abdominal aorta is normal in size and caliber. Evaluation of abdominal and pelvic vessels is limited due to lack of intravenous contrast. Pelvic Organs: Unremarkable Musculoskeletal: No aggressive focal bony lesions, acute fractures or dislocation. Soft tissues: Unremarkable IMPRESSION: 1. Urine distended bladder with no calcifications and no hydronephrosis. 2. Prostate does not appear enlarged. HS:Y Radiation optimization: All CT scans at this facility use at least one of these dose optimization techniques: automated exposure control mA and/or kV adjustment per patient size (includes targeted exams where dose is matched to clinical indication) or iterative reconstruction. ATED BY: PAULO MCBRIDE Jr., DO DICTATED DATE/TIME: 04/28/251708 SIGNED BY: PAULO MCBRIDE Jr., DO SIGNED DATE/TIME: 04/28/251708 CC: [place] [id number] Ph: [phone] DIAGNOSTIC IMAGING Diagnostic Imaging Report : [id number] Signed PATIENT: LAWSON SOCCT: [id number] UNIT: [id number] : 1995 LOC: ER ROOM / BED: / AGE / SEX: 29 / M ADM STATUS: REG ER SERVICE 10 ORDERING PHYSICIAN: MARSHA FARLEY DO PROCEDURE(s): CXRP - CHEST PORTABLE REASON: sepsis ORDER NUMBER(s): [id number], ACCESSION NUMBER(s): [id number] CHEST RADIOGRAPH Indication: sepsis Technique: Single frontal view of the chest was obtained COMPARISON: CHEST XRAY 1 VIEW on DOS: 01/11/21, CHEST PORTABLE on DOS: 09/22/20 FINDINGS: Lines and Tubes: None Lungs: Clear Pleura: No effusion. No pneumothorax. Cardiomediastinal contours: Unremarkable Bones: Unremarkable IMPRESSION: 1. No acute disease. ATED BY: PAULO MCNEILL MD DICTATED DATE/TIME: 04/28/251753 SIGNED BY: PAULO MCNEILL MD SIGNED DATE/TIME: 04/28/251753 CC: Time of 1ST Reevaluation: 17:01 Reevaluation 1ST: Unchanged Patient Education/Counseling: Diagnosis, Treatment Family Education/Counseling: No Family Present Comments Sepsis protocol was initiated with weight based fluid resuscitation. Patient presented with the above HPI.---abdominal pain/alcoholic gastritis---workup was initiated. patient was found with the above mentioned diagnosis. the following medications were ordered: please refer to order lists of meds and tests obtained by myself Dr. Farley. Patient ED course and VS have been stabilized. Patient has been reassessed in the ED and remained in a stable condition. Pertinent incidental findings were discussed with the patient and/or family. Patient/family voices understanding and is agreeable with plan. Patient has been observed in the ED adequate length of time to insure improvement/stability. Escalation of care considered: Consideration of escalation to observation or admission Patient was ADMITTED to the medicine team for further evaluation and treatment of their presentation. All the reports of any imaging studies that were ordered by myself were reviewed by myself. Departure 1 Departure Time of Disposition: 17:13 Impression: Primary Impression: Sepsis Additional Impressions: Alcohol abuse Pancreatitis Dehydration Elevated lactic acid level Disposition: ADMITTED INPATIENT Admit to: Tele Condition: Guarded Discharged With: Self Critical Care Note Critical Care Time?: Yes (55 min-critical care time only) I personally scribed for MARSHA FARLEY DO ([email or web address]) on 04/28/25 at 16:04. Electronically submitted by Valdo Rodriguez ([email or web address]). I personally scribed for MARSHA FARLEY DO ([email or web address]) on 04/28/25 at 17:08. Electronically submitted by Valdo Rodriguez ([email or web address]). MARSHA FARLEY DO Apr 28, 2025 16:04
[2025-04-28 16:40] LABS: Basophils # (auto) 0.1 10 ^3/uL (0-0.2); Basophils % (auto) 1.4 % (0.0-2.0); Eosinophils # (auto) 0 10 ^3/uL (0-0.8); Eosinophils % (auto) 0.5 % (0.0-7.0); Hematocrit 32.7 % (41.0-53.0); Hemoglobin 11.5 g/dL (13.5-17.5); Lymphocytes # (auto) 2.2 10 ^3/uL (0.4-5.4); Lymphocytes % (auto) 51.2 % (10.0-50.0); Mean Corpuscular Hgb Conc. 35.1 g/dL (32.0-36.0); Mean Corpuscular Volume 90.9 fL (80.0-100.0); Monocytes # (auto) 0.5 10 ^3/uL (0-1.3); Monocytes % (auto) 12.4 % (0.0-12.0); Neutrophils # (auto) 1.5 10 ^3/uL (1.6-8.6); Neutrophils % (auto) 34.5 % (37.0-80.0); Nucleated Red Blood Cells % 0.1 %; Platelet Count (auto) 269 10^3/uL (140-450); Red Blood Cells 3.59 10^6/uL (4.5-5.90); Red Cell Distribution Width 19.5 % (11.8-14.3); White Blood Cell 4.3 10^3/uL (4.4-10.8)
[2025-04-28] MEDS: SODIUM CHLORIDE 0.9% 1,000 ML IV ONE ×2 (16:50→17:15)
[2025-04-28 17:00] LABS: Albumin 3.6 g/dL (3.2-4.8); Anion Gap 15 (5-15); BUN/Creatinine Ratio 13.5 (10.0-20.0); Blood Urea Nitrogen 12 mg/dL (9-23); Calcium 8.9 mg/dL (8.7-10.4); Carbon Dioxide 22 mmol/L (20-31); Magnesium 2.1 mg/dL (1.6-2.6); Potassium 3.9 mmol/L (3.5-5.1)
[2025-04-28] MEDS: ONDANSETRON HCL 4 MG/2 ML VIAL IV ONE (17:03)
[2025-04-28 17:04] LABS: Alanine Aminotransferase 58 U/L (7-40); Alkaline Phosphatase 403 U/L (46-116); Aspartate Aminotransferase 147 U/L (<34); Bilirubin, Total 1.9 mg/dL (0.2-1.0); Chloride 97 mmol/L (98-107); Glucose 151 mg/dL (74-106); Lipase 64 U/L (12-53); Sodium 134 mmol/L (136-145)
[2025-04-28 17:05] LABS: Lactic Acid w/Reflex 7.2 mmol/L (0.4-2.0)
--- NOTE | 2025-04-28 17:12 | DVH ---
Exam: CT CT AB PEL WO CON-NO ORAL OR IV History: abd pain n/v Comparison Study: CT ABD PELVIS WO CONTRAST on DOS: 01/11/21 TECHNIQUE: Multidetector CT of the abdomen was performed from lung bases to pubic symphysis. Imaging was performed without IV contrast. Axial, coronal and sagittal multiplanar reformats were obtained fr om the axial data set by the technologist. Radiation Dose Information: CT Dose: CTDI volume is 7.91 mGy. Dose-length product is 402.57 mGy*cm FINDINGS: Evaluation of solid organs is limited due to lack of intravenous contrast use. Findings: Lung Bases: No acute or significant lung base finding. Normal heart size. No pleural or pericardial effusion. Liver: The liver is normal in size. No focal lesions. Hepatic steatosis Gallbladder and Biliary Tree: No calcified gallstones Spleen: Unremarkable Pancreas: The pancreas is grossly normal in appearance. Adrenal Glands: Unremarkable Kidneys: Kidneys are grossly normal without calculi or hydronephrosis. Bladder: Urine distended bladder. 20 cm by 11.3 by 15.7 cm. No calcifications. Prostate does not appe ar enlarged Bowel: The stomach is grossly normal in appearance. Small bowel and colon are normal in caliber and d istribution. The appendix is not visualized; however, no secondary findings of acute appendicitis id entified. Ascites: Absent Lymphadenopathy: No mesenteric, retroperitoneal or periportal lymphadenopathy. Abdominal Wall and Mesentery: Unremarkable. Vasculature: The visualized abdominal aorta is normal in size and caliber. Evaluation of abdominal a nd pelvic vessels is limited due to lack of intravenous contrast. Pelvic Organs: Unremarkable Musculoskeletal: No aggressive focal bony lesions, acute fractures or dislocation. Soft tissues: Unremarkable IMPRESSION: 1. Urine distended bladder with no calcifications and no hydronephrosis. 2. Prostate does not appear enlarged. HS:Y Radiation optimization: All CT scans at this facility use at least one of these dose optimization michael hniques: automated exposure control mA and/or kV adjustment per patient size (includes targeted exam s where dose is matched to clinical indication) or iterative reconstruction.
[2025-04-28 17:52] LABS: Urine Bacteria None Seen /hpf (None Seen)
--- NOTE | 2025-04-28 17:57 | DVH ---
CHEST RADIOGRAPH Indication: sepsis Technique: Single frontal view of the chest was obtained COMPARISON: CHEST XRAY 1 VIEW on DOS: 01/11/21, CHEST PORTABLE on DOS: 09/22/20 FINDINGS: Lines and Tubes: None Lungs: Clear Pleura: No effusion. No pneumothorax. Cardiomediastinal contours: Unremarkable Bones: Unremarkable IMPRESSION: 1. No acute disease.
[2025-04-28 18:09] LABS: Urine Blood Negative /uL (Negative); Urine Clarity Clear (Clear); Urine Color Light-Yellow (Yellow); Urine Protein, UAD Negative (Negative); Urine Squamous Epithelial Cell None Seen /hpf (<5); Urine Urobilinogen Normal (Negative); Urine WBC < 1 /HPF (0-3); Urine pH 5.5 (5.0-9.0)
[2025-04-28 18:14] LABS: Amphetamine Screen, Urine Neg (NEGATIVE); Barbiturate Scree,Urine Neg (NEGATIVE); Benzodiazephine Screen, Urine Neg (NEGATIVE); Cannabinoid Screen, Urine Neg (NEGATIVE); Cocaine Screen, Urine Neg (NEGATIVE); Opiate Scree,Urine Neg (NEGATIVE); Phencyclidine Screen, Urine Neg (NEGATIVE)
[2025-04-28] MEDS: LACTATED RINGER'S 2,200 ML IV ONE (18:20)
[2025-04-28] MEDS: VANCOMYCIN 1GM/200ML PM 200 ML IV ONE (18:20)
[2025-04-28 18:22] LABS: INR 1.08 (0.9-1.15); Prothrombin Time 11.4 sec (9.3-11.8)
[2025-04-28 19:38] VITALS: PULSE 78; RESP 18; O2SAT 96
[2025-04-28] MEDS: CEFEPIME 1GM/ 50ML 50 ML IV SCH (19:59)
[2025-04-28] MEDS: fentaNYL CITRATE 100 MCG/2 ML VL IV ONE (19:59)
[2025-04-28] MEDS ORDERED: DEXTROSE (50%) 50ML SYRG IV PRN (20:30)
[2025-04-28] MEDS ORDERED: IBUPROFEN 600 MG TAB PO PRN (20:30)
[2025-04-28] MEDS ORDERED: VANCOMYCIN PER PHARMACY 0 MG IV SCH (20:30)
[2025-04-28] MEDS ORDERED: DOCUSATE SOD 100 MG CAP PO PRN (20:30)
[2025-04-28] MEDS: ACCU-CHEK COMFORT CURVE STRIP VI SCH (21:28)
[2025-04-28] MEDS: InsuLIN REG 1unit/0.01ml Soln (100units/ml) SC SCH (21:32)
--- NOTE | 2025-04-28 21:35 | DVHHP2 ---
History of Present Illness Reason for Visit: Sepsis, unspecified organism History of Present Illness The patient is a 29 male with past medical history of anxiety, alcohol abuse, chronic pancreatitis, and DM who presented to [facility] with complaint of abdominal pain. Patient reports she has been experiencing bilateral lower ribs pain, admits to drinking heavily, associated with nausea, vomiting, syncope, getting worse that prompted this visit. Patient was seen and evaluated in the ED, laboratory data shows WBC 4.3, hemoglobin 11.5, hematocrit 32.7, platelets 269, sodium 134, potassium 3.9, BUN 12, creatinine 0.89, glucose 157, lipase 64, AST 147, ALT 58, alkaline phos 403, lactic acid 5.9, blood pressure 86/64 trending up to 121/84, heart rate 131 trending down to 94, temperature 98.1 F, O2 saturation 96% on oxygen. Patient was started on IV antibiotic regimen vancomycin, please see medication orders section in the computer. On my assessment, patient denied chest pain, no headache, no dizziness, no diaphoresis, currently on oxygen, no nausea or vomiting at this moment, no fever, no chills. Patient was admitted for further evaluation and medical management. Past Medical History DM, Chronic Pancreatitis, anxiety, alcohol abuse Past Surgical History Empyema resection Family History Reviewed, noncontributory to the management of this case. Past Social History Patient lives at home, drinks alcohol heavily, denies smoking or illicit drugs abuse. Review of Systems Constitutional: Yes: Weakness; No: Fever, Chills, Sweats, Malaise, Other Eyes: No: Pain, Vision change, Conjunctivae inflammation, Eyelid inflammation, Other, Redness ENT: No: Ear pain, Ear discharge, Nose pain, Nose discharge, Nose congestion, Mouth pain, Mouth swelling, Throat pain, Throat swelling, Other Respiratory: Shortness of breath; No: Cough, Dry, SOB with excertion, Wheezing, Hemoptysis, Pleuritic Pain, Sputum, Wheezing, Other Cardiovascular: Other (Syncope); No: Chest Pain, Palpitations, Orthopnea, Par oxysmal Noc. Dyspnea, Edema, Lt Headedness Gastrointestinal: Nausea, Vomiting, Abdominal Pain; No: Diarrhea, Constipation, Melena, Hematochezia, Other Genitourinary: No Dysuria, No Frequency, No Incontinence, No Hematuria, No Retention, No Other Musculoskeletal: No: other, neck pain, shoulder pain, arm pain, back pain, hand pain, leg pain, foot pain Skin: No: Rash, Lesions, Jaundice, Bruising, Other Neurological: No: Weakness, Numbness, Incoordination, Change in speech, Confusion, Seizures, Other Allergies: Coded Allergies: NO KNOWN ALLERGIES (Unverified , 09/22/20) Medications Current Medications Medications Dose Ordered Sig/Dejah Route Start Time Stop Time Status Last Admin Dose Admin Cefepime HCl 50 ml @ 12.5 mls/hr Q8HR IV 04/28/25 22:00 04/28/25 19:59 12.5 MLS/HR Vancomycin HCl 0 ml @ 0 mls/hr UD IV 04/28/25 20:30 Diagnostic Test (Pha) 1 strip ACHS 04/28/25 22:00 04/28/25 21:28 1 STRIP Insulin Human Regular HS SC 04/28/25 22:00 Insulin Human Regular AC SC 04/29/25 07:00 Dextrose 50 ml UD PRN IV 04/28/25 20:30 Sodium Chloride 1,000 ml @ 60 mls/hr [id number] IV 04/28/25 20:30 Acetaminophen/ Hydrocodone Bitart 1 tab Q4HP PRN PO 04/28/25 20:30 Ondansetron HCl 4 mg Q4HP PRN IV 04/28/25 20:30 Docusate Sodium 100 mg BIDPRN PRN PO 04/28/25 20:30 Ibuprofen 600 mg Q6HP PRN PO 04/28/25 20:30 Exam Vital Signs Vital Signs Date Time Temp Pulse Resp B/P (MAP) Pulse Ox O2 Delivery O2 Flow Rate FiO2 04/28/25 20:00 94 04/28/25 19:59 121/84 04/28/25 19:38 98.1 18 96 98.1 04/28/25 19:38 Room Air* 0 21 General Appearance: Alert, Oriented X3, No acute distress HEENT: Atraumatic, PERRLA, EOMI, Mucous membr. moist/pink Respiratory: Clear to auscultation, Normal air movement Cardiovascular: Regular rate, Normal S1, Normal S2, No murmurs Abdominal: Normal bowel sounds, Soft, No tenderness, No hepatospenomegaly, No masses Extremities: No clubbing, No cyanosis, No edema, Normal pulses, No tenderness/swelling Skin: No rashes, No breakdown, No significant lesion Neuro: Normal speech, Normal tone, Sensation intact, Cranial nerves 3-12 NL, Reflexes 2+, Other (Generalized weakness) Psych/Mental Status: Mental status NL, Mood NL Labs/Xrays Labs Test 04/28/25 18:16 04/28/25 17:20 04/28/25 16:37 04/28/25 16:24 Range/Units Lactic Acid Level 5.9 *H 0.4-2.0 mmol/L Urine Color Light-yellow Yellow Urine Clarity Clear Clear Urine pH 5.5 5.0-9.0 Urine Specific [place] 1.010 1.001-1.035 Urine Protein Negative Negative Urine Ketones Negative Negative Urine Blood Negative Negative /uL Urine Nitrite Negative Negative Urine Bilirubin Negative Negative Urine Urobilinogen Normal Negative mg/dL Urine Leukocyte Esterase Negative Negative /uL Urine RBC 1 0 - 3 /hpf Urine Microscopic WBC < 1 0-3 /HPF Urine Squamous Epithelial Cells None seen <5 /hpf Urine Bacteria None seen None Seen /hpf Urine Glucose 4+ H Normal mg/dL Urine Opiates Screen Neg NEGATIVE Urine Fentanyl Screen Neg NEGATIVE Urine Barbiturates Screen Neg NEGATIVE Urine Phencyclidine Screen Neg NEGATIVE Urine Amphetamines Screen Neg NEGATIVE Urine Benzodiazepines Screen Neg NEGATIVE Urine Cocaine Screen Neg NEGATIVE Urine Cannabinoids Screen Neg NEGATIVE POC Glucose 154 H 70-106 mg/dl White Blood Count 4.3 L 4.4-10.8 10^3/uL Red Blood Count 3.59 L 4.5-5.90 10^6/uL Hemoglobin 11.5 L 13.5-17.5 g/dL Hematocrit 32.7 L 41.0-53.0 % Mean Corpuscular Volume 90.9 80.0-100.0 fL Mean Corpuscular Hemoglobin 32.0 28.0-32.0 pg Mean Corpuscular Hemoglobin Concent 35.1 32.0-36.0 g/dL Red Cell Distribution Width 19.5 H 11.8-14.3 % Platelet Count 269 140-450 10^3/uL Mean Platelet Volume 7.6 6.9-10.8 fL Neutrophils (%) (Auto) 34.5 L 37.0-80.0 % Lymphocytes (%) (Auto) 51.2 H 10.0-50.0 % Monocytes (%) (Auto) 12.4 H 0.0-12.0 % Eosinophils (%) (Auto) 0.5 0.0-7.0 % Basophils (%) (Auto) 1.4 0.0-2.0 % Neutrophils # (Auto) 1.5 L 1.6-8.6 10 ^3/uL Lymphocytes # (Auto) 2.2 0.4-5.4 10 ^3/uL Monocytes # (Auto) 0.5 0-1.3 10 ^3/uL Eosinophils # (Auto) 0 0-0.8 10 ^3/uL Basophils # (Auto) 0.1 0-0.2 10 ^3/uL Nucleated Red Blood Cells 0.1 % Prothrombin Time 11.4 9.3-11.8 sec Prothrombin Time INR 1.08 0.9-1.15 Activated Partial Thromboplast Time 32.0 24.5-34.5 SEC Sodium Level 134 L 136-145 mmol/L Potassium Level 3.9 3.5-5.1 mmol/L Chloride Level 97 L 98-107 mmol/L Carbon Dioxide Level 22 20-31 mmol/L Anion Gap 15 5-15 Blood Urea Nitrogen 12 9-23 mg/dL Creatinine 0.89 0.700-1.30 mg/dL Glomerular Filtration Rate Calc 118 >90 mL/min BUN/Creatinine Ratio 13.5 10.0-20.0 Serum Glucose 151 H 74-106 mg/dL Calcium Level 8.9 8.7-10.4 mg/dL Magnesium Level 2.1 1.6-2.6 mg/dL Total Bilirubin 1.9 H 0.2-1.0 mg/dL Aspartate Amino Transferase (AST) 147 H <34 U/L Alanine Aminotransferase (ALT) 58 H 7-40 U/L Alkaline Phosphatase 403 H 46-116 U/L Troponin I High Sensitivity 8 </=54 ng/L Total Protein 7.0 5.7-8.2 g/dL Albumin 3.6 3.2-4.8 g/dL Lipase 64 H 12-53 U/L PATIENT: LAWSON SOCCT: [id number] UNIT: [id number] : 1995 LOC: ER ROOM / BED: / AGE / SEX: 29 / M ADM STATUS: REG ER SERVICE [id number] ORDERING PHYSICIAN: MARSHA FARLEY DO PROCEDURE(s): ABPL - CT AB PEL WO CON-NO ORAL OR IV REASON: abd pain n/v ORDER NUMBER(s): [id number], ACCESSION NUMBER(s): [id number] Exam: CT CT AB PEL WO CON-NO ORAL OR IV History: abd pain n/v Comparison Study: CT ABD PELVIS WO CONTRAST on DOS: 01/11/21 TECHNIQUE: Multidetector CT of the abdomen was performed from lung bases to pubic symphysis. Imaging was performed without IV contrast. Axial, coronal and sagittal multiplanar reformats were obtained from the axial data set by the technologist. Radiation Dose Information: CT Dose: CTDI volume is 7.91 mGy. Dose-length product is 402.57 mGy*cm FINDINGS: Evaluation of solid organs is limited due to lack of intravenous contrast use. Findings: Lung Bases: No acute or significant lung base finding. Normal heart size. No pleural or pericardial effusion. Liver: The liver is normal in size. No focal lesions. Hepatic steatosis Gallbladder and Biliary Tree: No calcified gallstones Spleen: Unremarkable Pancreas: The pancreas is grossly normal in appearance. Adrenal Glands: Unremarkable Kidneys: Kidneys are grossly normal without calculi or hydronephrosis. Bladder: Urine distended bladder. 20 cm by 11.3 by 15.7 cm. No calcifications. Prostate does not appear enlarged Bowel: The stomach is grossly normal in appearance. Small bowel and colon are normal in caliber and distribution. The appendix is not visualized; however, no secondary findings of acute appendicitis identified. Ascites: Absent Lymphadenopathy: No mesenteric, retroperitoneal or periportal lymphadenopathy. Abdominal Wall and Mesentery: Unremarkable. Vasculature: The visualized abdominal aorta is normal in size and caliber. Evaluation of abdominal and pelvic vessels is limited due to lack of intravenous contrast. Pelvic Organs: Unremarkable Musculoskeletal: No aggressive focal bony lesions, acute fractures or dislocation. Soft tissues: Unremarkable IMPRESSION: 1. Urine distended bladder with no calcifications and no hydronephrosis. 2. Prostate does not appear enlarged. ORDERING PHYSICIAN: MARSHA FARLEY DO PROCEDURE(s): CXRP - CHEST PORTABLE REASON: sepsis ORDER NUMBER(s): [id number], ACCESSION NUMBER(s): [id number] CHEST RADIOGRAPH Indication: sepsis Technique: Single frontal view of the chest was obtained COMPARISON: CHEST XRAY 1 VIEW on DOS: 01/11/21, CHEST PORTABLE on DOS: 09/22/20 FINDINGS: Lines and Tubes: None Lungs: Clear Pleura: No effusion. No pneumothorax. Cardiomediastinal contours: Unremarkable Bones: Unremarkable IMPRESSION: 1. No acute disease. Assessment/Plan Assessment/Plan Sepsis, unspecified organism Dehydration Alcohol abuse Elevated liver enzymes Acute Pancreatitis Generalized weakness Plan 1. Admit to telemetry unit 2. Breathing treatment 3. Pain control management 4. IV antibiotic management 5. Management of fluids and electrolytes 6. Consultation for hospitalist 7. Diagnostic test chest x-ray 8. DVT prophylaxis-on SCDs 9. Repeat labs CBC, CMP in a.m. 10. Home medication reviewed and reconciled 11. Continue with current medical management 12. Treatment plan discussed with patient and RN. Patient verbalized understanding. Plan discussed with: Patient, Other (RN) My Orders Orders - DAVID RODRIGUEZ DNP Procedure Category Date Status Time Consistent DIET 04/29/25 Transmitted Carb(Ccho)Diabetes Breakfast Vancomycin Per PHA 04/28/25 In Process Pharmacy 20:30 Glucose Blood PHA 04/28/25 In Process (Accu-Chek Comfort 22:00 Insulin R (Human) PHA 04/28/25 In Process (Insulin R) 22:00 Insulin R (Human) PHA 04/29/25 In Process (Insulin R) 07:00 Dextrose 50% Syringe PHA 04/28/25 In Process 20:30 Allergies WINDY 04/28/25 In Process 20:20 Code Status CODE 04/28/25 Transmitted 20:20 Sodium Chloride 0.9% PHA 04/28/25 In Process 20:30 Oxygen Per Hour RT 04/28/25 Transmitted 20:20 Hydrocodone-Acet PHA 04/28/25 In Process 5/325mg Tab ([place] 20:30 Ondansetron Hcl PHA 04/28/25 In Process (Zofran) 20:30 Docusate Sodium PHA 04/28/25 In Process Capsule (Colace 20:30 Complete Blood Count LAB 04/29/25 Verified 04:00 Comprehensive LAB 04/29/25 Verified Metabolic Panel 04:00 Condition: Serious WINDY 04/28/25 In Process 20:20 Bedrest With Bathroom WINDY 04/28/25 In Process Privileg 20:20 Sequential WINDY 04/28/25 In Process Compression Device Ibuprofen Tablet PHA 04/28/25 In Process (Motrin Tablet) 20:30 Admit ADMIT 04/28/25 Transmitted 21:32 Nitroglycerin PHA 04/28/25 Transmitted Sublingual (Ntrostat 21:[address] [facility] 04/28/25 Verified Injection 21:45 Notify Of Changes [facility] 04/28/25 Verified From Base 21:32 Certified [employer] Engineer For [facility] 04/28/25 Verified 24 Hours 21:32 Emergency Dysrhythmia [facility] 04/28/25 Verified Protocol 21:32 Rhythm Strips Once [facility] 04/28/25 Verified Every Shift 21:32 Oxygen By Nasal RT 04/28/25 Verified Cannula 21:32 Problem List: (1) Sepsis, unspecified organism (2) Dehydration (3) Alcohol abuse (4) Elevated liver enzymes (5) Acute pancreatitis (6) Generalized weakness Date of Service: Apr 28, 2025 Billing Provider: DAVID RODRIGUEZ DNP Common Visit Codes: [id number] INP/OBS CARE (HIGH) DAVID RODRIGUEZ DNP Apr 28, 2025 21:34
[2025-04-28] MEDS ORDERED: MORPHINE SULFATE INJ 2 MG/ml SYRG IV PRN (21:45)
[2025-04-28] MEDS ORDERED: NITROGLYCERIN 0.4 MG SL TAB SL PRN (21:45)
[2025-04-28] MEDS: SODIUM CHLORIDE 0.9% 1,000 ML IV SCH (22:24)
[2025-04-28 22:59] LABS: Lactic Acid w/Reflex 3.2 mmol/L (0.4-2.0)
[2025-04-28] MEDS: MORPHINE SULFATE INJ 2 MG/ml SYRG IV PRN (23:26)
[2025-04-29] MEDS ORDERED: VANCOMYCIN 1GM/200ML PM 200 ML IV SCH (01:30)
[2025-04-29] MEDS: VANCOMYCIN 1GM/200ML PM 200 ML IV SCH (01:42)
[2025-04-29] MEDS ORDERED: VANCOMYCIN 1GM/250ML KIT 250 ML IV SCH (02:00)
[2025-04-29 06:04] LABS: Basophils # (auto) 0.1 10 ^3/uL (0-0.2); Basophils % (auto) 2.4 % (0.0-2.0); Eosinophils # (auto) 0 10 ^3/uL (0-0.8); Eosinophils % (auto) 1.4 % (0.0-7.0); Hematocrit 28.9 % (41.0-53.0); Hemoglobin 10.4 g/dL (13.5-17.5); Lymphocytes # (auto) 1.7 10 ^3/uL (0.4-5.4); Lymphocytes % (auto) 50.6 % (10.0-50.0); Mean Corpuscular Hemoglobin 32.4 pg (28.0-32.0); Mean Corpuscular Hgb Conc. 35.8 g/dL (32.0-36.0); Mean Corpuscular Volume 90.4 fL (80.0-100.0); Monocytes # (auto) 0.3 10 ^3/uL (0-1.3); Monocytes % (auto) 9.9 % (0.0-12.0); Neutrophils # (auto) 1.2 10 ^3/uL (1.6-8.6); Neutrophils % (auto) 35.7 % (37.0-80.0); Nucleated Red Blood Cells % 0.1 %; Platelet Count (auto) 235 10^3/uL (140-450); Red Cell Distribution Width 19.4 % (11.8-14.3); White Blood Cell 3.4 10^3/uL (4.4-10.8)
[2025-04-29] MEDS: InsuLIN REG 1unit/0.01ml Soln (100units/ml) SC SCH (06:13)
[2025-04-29 06:21] LABS: Anion Gap 12 (5-15); BUN/Creatinine Ratio 14.5 (10.0-20.0); Carbon Dioxide 21 mmol/L (20-31); Chloride 102 mmol/L (98-107); Potassium 3.9 mmol/L (3.5-5.1); Total Protein 5.7 g/dL (5.7-8.2)
[2025-04-29 06:25] LABS: Alanine Aminotransferase 50 U/L (7-40); Albumin 2.8 g/dL (3.2-4.8); Alkaline Phosphatase 337 U/L (46-116); Aspartate Aminotransferase 139 U/L (<34); Bilirubin, Total 1.7 mg/dL (0.2-1.0); Blood Urea Nitrogen 8 mg/dL (9-23); Calcium 7.4 mg/dL (8.7-10.4); Glucose 225 mg/dL (74-106); Sodium 135 mmol/L (136-145)
[2025-04-29] MEDS: ONDANSETRON HCL 4 MG/2 ML VIAL IV PRN (08:02)
[2025-04-29 08:30] VITALS: PULSE 87; RESP 11; O2SAT 99
--- NOTE | 2025-04-29 16:18 | DVHPN2 ---
Subjective History of Present Illness The patient is a 29 male with past medical history of anxiety, alcohol abuse, chronic pancreatitis, and DM who presented to [facility] with complaint of abdominal pain. Patient reports she has been experiencing bilateral lower ribs pain, admits to drinking heavily, associated with nausea, vomiting, syncope, getting worse that prompted this visit. Patient was seen and evaluated in the ED, laboratory data shows WBC 4.3, hemoglobin 11.5, hematocrit 32.7, platelets 269, sodium 134, potassium 3.9, BUN 12, creatinine 0.89, glucose 157, lipase 64, AST 147, ALT 58, alkaline phos 403, lactic acid 5.9, blood pressure 86/64 trending up to 121/84, heart rate 131 trending down to 94, temperature 98.1 F, O2 saturation 96% on oxygen. Patient was started on IV antibiotic regimen vancomycin, please see medication orders section in the computer. On my assessment, patient denied chest pain, no headache, no dizziness, no diaphoresis, currently on oxygen, no nausea or vomiting at this moment, no fever, no chills. Patient was admitted for further evaluation and medical management. Past Medical History DM, Chronic Pancreatitis, anxiety, alcohol abuse Patient is seen today at bedside. Patient feeling unwell. Lethargic, diaphoretic. Has mild tremor , essential tremor with posture. Reviewed: H&P Changes from previous H/P or p: No Changes General: Per HPI Eyes: No Pain, No Vision change, No Conjunctivae inflammation, No Eyelid inflammation, No Other, No Redness ENT: No Ear pain, No Ear discharge, No Nose pain, No Nose discharge, No Nose congestion, No Mouth pain, No Mouth swelling, No Throat pain, No Throat swelling, No Other Cardiovascular: No Chest Pain, No Palpitations, No Orthopnea, No Paroxysmal Noc. Dyspnea, No Edema, No Lt Headedness; Other (Syncope) Respiratory: No Cough, No Dry; Shortness of breath; No SOB with excertion, No Wheezing, No Hemoptysis, No Pleuritic Pain, No Sputum, No Other Gastrointestinal: Nausea, Vomiting, Abdominal Pain; No Diarrhea, No Constipation, No Melena, No Hematochezia, No Other Genitourinary: No Dysuria, No Frequency, No Incontinence, No Hematuria, No Retention, No Other Musculoskeletal: No other, No neck pain, No shoulder pain, No arm pain, No back pain, No hand pain, No leg pain, No foot pain Skin: No Rash, No Lesions, No Jaundice, No Bruising, No Other Objective Vitals Vital Signs Date Time Temp Pulse Resp B/P (MAP) Pulse Ox O2 Delivery O2 Flow Rate FiO2 04/29/25 15:12 90 15 132/104 (113) 97 04/29/25 08:30 Room Air* 0 21 04/29/25 04:25 98.1 98.1 Exam GEN: Healthy appearing, well-developed, NAD. HEENT: NC/AT; MMM. Nares bilateral covered with dry blood. CV: RRR, no m/r/g. LUNGS: CTAB, no w/r/c. ABD: Soft, NT/ND, NBS, no masses or organomegaly. Patient has epigastric abdominal pain tender on palpation. EXT: skin Warm, well perfused. no rashes. No clubbing, cyanosis, or edema. NEURO: Ambulating with no limitations. No focal deficits. Patient has fine essential tremor with posture, no FND Medications Current Medications Medications Dose Ordered Sig/Dejah Route Start Time Stop Time Status Last Admin Dose Admin Cefepime HCl 50 ml @ 12.5 mls/hr Q8HR IV 04/28/25 22:00 04/29/25 05:53 12.5 MLS/HR Vancomycin HCl 0 ml @ 0 mls/hr UD IV 04/28/25 20:30 Diagnostic Test (Pha) 1 strip ACHS 04/28/25 22:00 04/29/25 11:58 1 STRIP Insulin Human Regular HS SC 04/28/25 22:00 Insulin Human Regular AC SC 04/29/25 07:00 04/29/25 06:31 6 UNITS Dextrose 50 ml UD PRN IV 04/28/25 20:30 Sodium Chloride 1,000 ml @ 60 mls/hr [id number] IV 04/28/25 20:30 04/29/25 13:20 60 MLS/HR Acetaminophen/ Hydrocodone Bitart 1 tab Q4HP PRN PO 04/28/25 20:30 Ondansetron HCl 4 mg Q4HP PRN IV 04/28/25 20:30 04/29/25 08:02 4 MG Docusate Sodium 100 mg BIDPRN PRN PO 04/28/25 20:30 Ibuprofen 600 mg Q6HP PRN PO 04/28/25 20:30 Nitroglycerin 0.4 mg Q5MINP PRN SL 04/28/25 21:45 Morphine Sulfate 2 mg Q30M PRN IV 04/28/25 21:45 Morphine Sulfate 2 mg Q4HPRN PRN IV 04/28/25 23:15 04/29/25 13:11 2 MG Vancomycin HCl 200 ml @ 200 mls/hr Q8H IV 04/29/25 02:00 04/29/25 10:12 200 MLS/HR Laboratory Results Laboratory Tests 04/29/25 05:28 Chemistry Test 04/28/25 16:24 04/29/25 05:28 Albumin 3.6 g/dL (3.2-4.8) 2.8 g/dL (3.2-4.8) L Calcium Level 8.9 mg/dL (8.7-10.4) 7.4 mg/dL (8.7-10.4) L Magnesium Level 2.1 mg/dL (1.6-2.6) Total Protein 7.0 g/dL (5.7-8.2) 5.7 g/dL (5.7-8.2) Coagulation Test 04/28/25 16:24 Prothrombin Time 11.4 sec (9.3-11.8) Prothrombin Time INR 1.08 (0.9-1.15) Activated Partial Thromboplast Time 32.0 SEC (24.5-34.5) Lipid panel Test 04/28/25 16:24 Lipase 64 U/L (12-53) H LFT Test 04/28/25 16:24 04/29/25 05:28 Alanine Aminotransferase (ALT) 58 U/L (7-40) H 50 U/L (7-40) H Alkaline Phosphatase 403 U/L (46-116) H 337 U/L (46-116) H Aspartate Amino Transferase (AST) 147 U/L (<34) H 139 U/L (<34) H Total Bilirubin 1.9 mg/dL (0.2-1.0) H 1.7 mg/dL (0.2-1.0) H Urinalysis Test 04/28/25 17:20 Urine Color Light-yellow (Yellow) Urine Clarity Clear (Clear) Urine pH 5.5 (5.0-9.0) Urine Specific [place] 1.010 (1.001-1.035) Urine Protein Negative (Negative) Urine Ketones Negative (Negative) Urine Blood Negative /uL (Negative) Urine Nitrite Negative (Negative) Urine Bilirubin Negative (Negative) Urine Urobilinogen Normal mg/dL (Negative) Urine Leukocyte Esterase Negative /uL (Negative) Urine RBC 1 /hpf (0 - 3) Urine Microscopic WBC < 1 /HPF (0-3) Urine Squamous Epithelial Cells None seen /hpf (<5) Urine Bacteria None seen /hpf (None Seen) Urine Glucose 4+ mg/dL (Normal) H Labs and/or images reviewed: Labs reviewed by me, Image(s) reviewed by me Assessment/Plan Assessment/Plan 04/29 - patient has history of alcohol abuse, current alcohol abuse and alcohol dependence, history of alcohol pancreatitis and diabetes. Patient presenting with abdominal pain with recent alcohol binge drinking. Patient presented with nausea and vomiting syncope/loss of consciousness , recent heavy binge drink. Patient appears to be unwilling to admit to his alcohol dependence. On admission patient is tachycardic, lactic acidosis, transaminitis, hypotensive, tachypneic,. On evaluation patient is diaphoretic, tremulous, CIWA score elevated. Patient continues to have continued ongoing admission for alcohol withdrawal. We will start Alcohol protocol thiamine/folate daily, CIWA protocol. Diagnosis: Intractable abdominal pain Intractable nausea and vomiting Sirs with end-organ damage Gastroenteritis possible, infectious etiology likely Neutropenia Anemia Lactic acidosis Transaminitis Tachycardia Tachypnea Leukopenia Hyperbilirubinemia ALP elevated Hypoalbuminemia Glucosuria alcohol dependence Alcohol addiction Alcohol gastritis Alcohol pancreatitis history Type 2 diabetes Plan: - Librium taper - alcohol withdrawal protocol, Ativan 1 mg IV p.r.n. for CIWA more than 8-Q 2 hours -sliding scale insulin for diabetes - psychiatric consult for alcohol addiction - petroleum jelly nares to allow relief from nasal irritation - high-protein meal supplement with meals b.i.d. - patient has sirs with nausea and vomiting with gastroenteritis possible we will cover with IV antibiotics ceftriaxone/Flagyl. - blood cultures taken and pending Clear liquid diet Protonix IV daily DVT prophylaxis-Lovenox score no need for DVT prophylaxis Tele Full code Plan discussed with: Patient My Orders Orders - FANNY SOLOMON MD Procedure Category Date Status Time Blood Culture BELÉN 04/29/25 Logged 11:21 Date of Service: Apr 29, 2025 Billing Provider: FANNY SOLOMON MD Common Visit Codes: [id number] INP/OBS CARE(HIGH) FANNY SOLOMON MD Apr 29, 2025 16:18
[2025-04-29] MEDS ORDERED: LORazepam 2MG/ML-1ML VIAL IV PRN (16:30)
[2025-04-29] MEDS ORDERED: THIAMINE 100mg/ml INJ (200mg/2ml VIAL) IV ONE (16:30)
[2025-04-29] MEDS: THIAMINE HCL 100 MG TAB PO ONE (17:09)
[2025-04-29] MEDS: FOLIC ACID 1 MG TAB PO ONE (17:09)
[2025-04-29] MEDS: MULTIPLE VITAMIN TAB PO ONE (17:09)
[2025-04-29] MEDS: chlordiazePOXIDE HCL 25 MG CAP PO SCH (17:09)
[2025-04-29] MEDS: D5W/SOD CHL 0.45% 1,000 ML IV ONE (17:18)
--- NOTE | 2025-04-29 17:24 | DVH ---
EXAM: US Abdomen Limited, Right Upper Quadrant CLINICAL INDICATION: RUQ ultrasound to evaluate transaminitis TECHNIQUE: Real-time ultrasound of the right upper quadrant with image documentation. COMPARISON: None FINDINGS: LIVER: Liver measures up to 17.6 cm. Fatty infiltration of the liver. No intrahepatic bile duct d ilation. GALLBLADDER: Contracted gallbladder. No gallstones. COMMON BILE DUCT: CBD not visualized. PANCREAS: Unremarkable as visualized. RIGHT KIDNEY: Right kidney measures up to 10.6 cm. No stones. No hydronephrosis. OTHER FINDINGS: . . IMPRESSION: Fatty infiltration of the liver.
[2025-04-29 19:30] VITALS: PULSE 88; RESP 12; O2SAT 100
[2025-04-29] MEDS: HYDROcodone-ACET 5/325MG TAB PO PRN (20:54)
[2025-04-29 22:23] VITALS: O2SAT 100
[2025-04-29 22:33] VITALS: PULSE 88
[2025-04-29] MEDS: metroNIDAZOLE 500MG/100ML 100 ML IV SCH (22:35)
[2025-04-29] MEDS ORDERED: GABA-1250 PO (22:44)
[2025-04-29 22:46] VITALS: BP 148/109; PULSE 85; RESP 18; TEMP 98.1; O2SAT 100
[2025-04-30] VITALS (8 sets, daily range): BP systolic 101–137; BP diastolic 70–103; PULSE 64–119; RESP 16–20; TEMP 97.4–98.1; O2SAT 95–100
[2025-04-30] MEDS: D5W/SOD CHL 0.45% 1,000 ML IV SCH (04:00)
[2025-04-30 07:26] LABS: Basophils # (auto) 0.1 10 ^3/uL (0-0.2); Basophils % (auto) 2.1 % (0.0-2.0); Eosinophils # (auto) 0.1 10 ^3/uL (0-0.8); Eosinophils % (auto) 1.7 % (0.0-7.0); Hematocrit 28.6 % (41.0-53.0); Hemoglobin 10.2 g/dL (13.5-17.5); Lymphocytes # (auto) 1.3 10 ^3/uL (0.4-5.4); Lymphocytes % (auto) 40.9 % (10.0-50.0); Mean Corpuscular Hemoglobin 32.3 pg (28.0-32.0); Mean Corpuscular Hgb Conc. 35.8 g/dL (32.0-36.0); Mean Corpuscular Volume 90.2 fL (80.0-100.0); Monocytes # (auto) 0.3 10 ^3/uL (0-1.3); Monocytes % (auto) 10.8 % (0.0-12.0); Neutrophils # (auto) 1.4 10 ^3/uL (1.6-8.6); Neutrophils % (auto) 44.5 % (37.0-80.0); Nucleated Red Blood Cells % 0.2 %; Platelet Count (auto) 228 10^3/uL (140-450); Red Blood Cells 3.17 10^6/uL (4.5-5.90); Red Cell Distribution Width 19.2 % (11.8-14.3); White Blood Cell 3.2 10^3/uL (4.4-10.8)
[2025-04-30 07:35] LABS: Anion Gap 10 (5-15); Calcium 9.2 mg/dL (8.7-10.4); Carbon Dioxide 28 mmol/L (20-31); Chloride 99 mmol/L (98-107); Phosphorus 4.6 mg/dL (2.4-5.1); Sodium 137 mmol/L (136-145); Total Protein 6.2 g/dL (5.7-8.2)
[2025-04-30 07:50] LABS: Alanine Aminotransferase 71 U/L (7-40); Albumin 3.1 g/dL (3.2-4.8); Alkaline Phosphatase 332 U/L (46-116); Aspartate Aminotransferase 323 U/L (<34); BUN/Creatinine Ratio 8.6 (10.0-20.0); Blood Urea Nitrogen < 5 mg/dL (9-23); Glucose 108 mg/dL (74-106); Potassium 3.3 mmol/L (3.5-5.1)
[2025-04-30 08:49] LABS: Magnesium 1.6 mg/dL (1.6-2.6)
[2025-04-30] MEDS: cefTRIAXone 1GM/50ML D5W 50 ML IV SCH (09:02)
[2025-04-30] MEDS: FOLIC ACID 1 MG TAB PO SCH (09:03)
[2025-04-30] MEDS: MULTIPLE VITAMIN TAB PO SCH (09:03)
[2025-04-30] MEDS: THIAMINE HCL 100 MG TAB PO SCH (09:03)
[2025-04-30] MEDS: chlordiazePOXIDE HCL 25 MG CAP PO SCH (10:00)
--- NOTE | 2025-04-30 12:29 | DVHPN2 ---
Subjective vitals stable, replete K, cx NGTD Reviewed: H&P Changes from previous H/P or p: No Changes General: Per HPI Eyes: No Pain, No Vision change, No Conjunctivae inflammation, No Eyelid inflammation, No Other, No Redness ENT: No Ear pain, No Ear discharge, No Nose pain, No Nose discharge, No Nose congestion, No Mouth pain, No Mouth swelling, No Throat pain, No Throat swelling, No Other Cardiovascular: No Chest Pain, No Palpitations, No Orthopnea, No Paroxysmal Noc. Dyspnea, No Edema, No Lt Headedness; Other (Syncope) Respiratory: No Cough, No Dry; Shortness of breath; No SOB with excertion, No Wheezing, No Hemoptysis, No Pleuritic Pain, No Sputum, No Other Gastrointestinal: Nausea, Vomiting, Abdominal Pain; No Diarrhea, No Constipation, No Melena, No Hematochezia, No Other Genitourinary: No Dysuria, No Frequency, No Incontinence, No Hematuria, No Retention, No Other Musculoskeletal: No other, No neck pain, No shoulder pain, No arm pain, No back pain, No hand pain, No leg pain, No foot pain Skin: No Rash, No Lesions, No Jaundice, No Bruising, No Other Objective Vitals Vital Signs Date Time Temp Pulse Resp B/P (MAP) Pulse Ox O2 Delivery O2 Flow Rate FiO2 04/30/25 09:00 97.4 74 16 121/90 (100) 99 97.4 04/30/25 08:00 Room Air* 0 21 Intake/Output Intake and Output 04/30/25 06:59 Intake Total 2265.0 ml Output Total 1000 ml Balance 1265.0 ml Intake Oral 800 ml IV Total 1465.0 ml Output Urine Total 1000 ml Medications Current Medications Medications Dose Ordered Sig/Dejah Route Start Time Stop Time Status Last Admin Dose Admin Diagnostic Test (Pha) 1 strip ACHS 04/28/25 22:00 04/30/25 11:55 1 STRIP Insulin Human Regular HS SC 04/28/25 22:00 04/29/25 22:44 8 UNITS Insulin Human Regular AC SC 04/29/25 07:00 04/30/25 11:30 9 UNITS Dextrose 50 ml UD PRN IV 04/28/25 20:30 Acetaminophen/ Hydrocodone Bitart 1 tab Q4HP PRN PO 04/28/25 20:30 04/29/25 20:54 1 TAB Ondansetron HCl 4 mg Q4HP PRN IV 04/28/25 20:30 04/29/25 08:02 4 MG Docusate Sodium 100 mg BIDPRN PRN PO 04/28/25 20:30 Ibuprofen 600 mg Q6HP PRN PO 04/28/25 20:30 Nitroglycerin 0.4 mg Q5MINP PRN SL 04/28/25 21:45 Morphine Sulfate 2 mg Q30M PRN IV 04/28/25 21:45 Morphine Sulfate 2 mg Q4HPRN PRN IV 04/28/25 23:15 04/30/25 06:12 2 MG Thiamine HCl 100 mg DAILY PO 04/30/25 10:00 04/30/25 09:03 100 MG Folic Acid 1 mg DAILY PO 04/30/25 10:00 04/30/25 09:03 1 MG Multivitamins 1 tab DAILY PO 04/30/25 10:00 04/30/25 09:03 1 TAB Lorazepam 1 mg Q2HPRN PRN IV 04/29/25 16:30 Chlordiazepoxide HCl 50 mg Q12HR PO 04/30/25 10:00 04/30/25 22:01 Chlordiazepoxide HCl 25 mg Q12HR PO 05/01/25 10:00 05/01/25 22:01 Ceftriaxone Sodium 50 ml @ 100 mls/hr DAILY@09 IV 04/30/25 09:00 04/30/25 09:02 100 MLS/HR Metronidazole 100 ml @ 100 mls/hr Q8HR IV 04/29/25 22:00 04/30/25 06:12 100 MLS/HR Dextrose/Sodium Chloride 1,000 ml @ 75 mls/hr [id number] IV 04/30/25 04:00 04/30/25 04:00 75 MLS/HR Laboratory Results Laboratory Tests 04/30/25 06:44 Chemistry Test 04/30/25 06:44 Albumin 3.1 g/dL (3.2-4.8) L Calcium Level 9.2 mg/dL (8.7-10.4) Magnesium Level 1.6 mg/dL (1.6-2.6) Phosphorus Level 4.6 mg/dL (2.4-5.1) Total Protein 6.2 g/dL (5.7-8.2) LFT Test 04/30/25 06:44 Alanine Aminotransferase (ALT) 71 U/L (7-40) H Alkaline Phosphatase 332 U/L (46-116) H Aspartate Amino Transferase (AST) 323 U/L (<34) H Total Bilirubin 4.0 mg/dL (0.2-1.0) H Urinalysis Test 04/28/25 17:20 Urine Color Light-yellow (Yellow) Urine Clarity Clear (Clear) Urine pH 5.5 (5.0-9.0) Urine Specific [place] 1.010 (1.001-1.035) Urine Protein Negative (Negative) Urine Ketones Negative (Negative) Urine Blood Negative /uL (Negative) Urine Nitrite Negative (Negative) Urine Bilirubin Negative (Negative) Urine Urobilinogen Normal mg/dL (Negative) Urine Leukocyte Esterase Negative /uL (Negative) Urine RBC 1 /hpf (0 - 3) Urine Microscopic WBC < 1 /HPF (0-3) Urine Squamous Epithelial Cells None seen /hpf (<5) Urine Bacteria None seen /hpf (None Seen) Urine Glucose 4+ mg/dL (Normal) H Microbiology Microbiology Date/Time Source Procedure Growth Status 04/28/25 18:16 Blood Blood Culture - Preliminary NO GROWTH AFTER 24 HOURS OF INCUBATION. Resulted Assessment/Plan Assessment/Plan Intractable abdominal pain Intractable nausea and vomiting Sirs with end-organ damage Gastroenteritis possible, infectious etiology likely Neutropenia Anemia Lactic acidosis Transaminitis Tachycardia Tachypnea Leukopenia Hyperbilirubinemia ALP elevated Hypoalbuminemia Glucosuria alcohol dependence Alcohol addiction Alcohol gastritis Alcohol pancreatitis history Type 2 diabetes Plan: - Librium taper - alcohol withdrawal protocol, Ativan 1 mg IV p.r.n. for CIWA more than 8-Q 2 hours -sliding scale insulin for diabetes - psychiatric consult for alcohol addiction - petroleum jelly nares to allow relief from nasal irritation - high-protein meal supplement with meals b.i.d. - patient has sirs with nausea and vomiting with gastroenteritis possible we will cover with IV antibiotics ceftriaxone/Flagyl. - blood cultures taken and pending Plan discussed with: Patient Date of Service: Apr 30, 2025 Billing Provider: CRISTY DIAZ MD Common Visit Codes: [id number] INP/OBS CARE(HIGH) CRISTY DIAZ MD Apr 30, 2025 12:29
[2025-04-30] MEDS: POTASSIUM EFFERVESENT TAB 25 MEQ PO ONE (13:38)
[2025-05-01 01:00] VITALS: BP 101/69; PULSE 85; RESP 17; TEMP 97.6; O2SAT 98
[2025-05-01 05:00] VITALS: BP 112/86; PULSE 99; RESP 17; TEMP 99; O2SAT 100
[2025-05-01 07:33] LABS: Basophils # (auto) 0 10 ^3/uL (0-0.2); Basophils % (auto) 0.9 % (0.0-2.0); Eosinophils # (auto) 0.1 10 ^3/uL (0-0.8); Eosinophils % (auto) 1.7 % (0.0-7.0); Hematocrit 28.5 % (41.0-53.0); Lymphocytes # (auto) 1.3 10 ^3/uL (0.4-5.4); Lymphocytes % (auto) 32.3 % (10.0-50.0); Mean Corpuscular Hemoglobin 32.1 pg (28.0-32.0); Mean Corpuscular Volume 91.7 fL (80.0-100.0); Monocytes # (auto) 0.3 10 ^3/uL (0-1.3); Monocytes % (auto) 8.7 % (0.0-12.0); Neutrophils # (auto) 2.3 10 ^3/uL (1.6-8.6); Neutrophils % (auto) 56.4 % (37.0-80.0); Platelet Count (auto) 201 10^3/uL (140-450); Red Blood Cells 3.11 10^6/uL (4.5-5.90); Red Cell Distribution Width 19.4 % (11.8-14.3)
[2025-05-01 07:47] LABS: Chloride 98 mmol/L (98-107); Potassium 4.5 mmol/L (3.5-5.1)
[2025-05-01 07:48] LABS: Anion Gap 8 (5-15); Carbon Dioxide 26 mmol/L (20-31)
[2025-05-01 07:49] LABS: Calcium 9.2 mg/dL (8.7-10.4)
[2025-05-01 07:53] LABS: BUN/Creatinine Ratio 8.2 (10.0-20.0)
[2025-05-01 07:56] LABS: Blood Urea Nitrogen 6 mg/dL (9-23); Glucose 387 mg/dL (74-106); Phosphorus 5.2 mg/dL (2.4-5.1); Sodium 132 mmol/L (136-145)
[2025-05-01 08:00] VITALS: PULSE 82
[2025-05-01 08:49] LABS: Magnesium 1.7 mg/dL (1.6-2.6)
[2025-05-01 09:00] VITALS: BP 116/87; PULSE 85; RESP 20; TEMP 96.9; O2SAT 99
[2025-05-01] MEDS: chlordiazePOXIDE HCL 25 MG CAP PO SCH (09:05)
[2025-05-01 13:00] VITALS: BP 116/87; PULSE 85; RESP 20; TEMP 97.6; O2SAT 100
[2025-05-01 13:06] VITALS: BP 126/78; PULSE 88; RESP 16
[2025-05-01] MEDS ORDERED: LEVO500T91 PO (13:37)
[2025-05-01] MEDS ORDERED: CHL25C PO (13:37)
--- NOTE | 2025-05-01 13:39 | DVHDS2 ---
Discharge Summary Date of Admission Apr 28, 2025 at 21:32 Date of Discharge: May 01, 2025 Labs/Diagnostic Data: Laboratory Results Test 05/01/25 06:17 04/30/25 16:12 04/30/25 06:44 04/29/25 17:00 White Blood Count 4.0 10^3/uL (4.4-10.8) Red Blood Count 3.11 10^6/uL (4.5-5.90) Hemoglobin 10.0 g/dL (13.5-17.5) Hematocrit 28.5 % (41.0-53.0) Mean Corpuscular Volume 91.7 fL (80.0-100.0) Mean Corpuscular Hemoglobin 32.1 pg (28.0-32.0) Mean Corpuscular Hemoglobin Concent 35.0 g/dL (32.0-36.0) Red Cell Distribution Width 19.4 % (11.8-14.3) Platelet Count 201 10^3/uL (140-450) Mean Platelet Volume 8.2 fL (6.9-10.8) Neutrophils (%) (Auto) 56.4 % (37.0-80.0) Lymphocytes (%) (Auto) 32.3 % (10.0-50.0) Monocytes (%) (Auto) 8.7 % (0.0-12.0) Eosinophils (%) (Auto) 1.7 % (0.0-7.0) Basophils (%) (Auto) 0.9 % (0.0-2.0) Neutrophils # (Auto) 2.3 10 ^3/uL (1.6-8.6) Lymphocytes # (Auto) 1.3 10 ^3/uL (0.4-5.4) Monocytes # (Auto) 0.3 10 ^3/uL (0-1.3) Eosinophils # (Auto) 0.1 10 ^3/uL (0-0.8) Basophils # (Auto) 0 10 ^3/uL (0-0.2) Nucleated Red Blood Cells 0.0 % Sodium Level 132 mmol/L (136-145) Potassium Level 4.5 mmol/L (3.5-5.1) Chloride Level 98 mmol/L (98-107) Carbon Dioxide Level 26 mmol/L (20-31) Anion Gap 8 (5-15) Blood Urea Nitrogen 6 mg/dL (9-23) Creatinine 0.73 mg/dL (0.700-1.30) Glomerular Filtration Rate Calc 126 mL/min (>90) BUN/Creatinine Ratio 8.2 (10.0-20.0) Serum Glucose 387 mg/dL (74-106) Calcium Level 9.2 mg/dL (8.7-10.4) Phosphorus Level 5.2 mg/dL (2.4-5.1) Magnesium Level 1.7 mg/dL (1.6-2.6) POC Glucose 292 mg/dl (70-106) Lactic Acid Level 1.1 mmol/L (0.4-2.0) Total Bilirubin 4.0 mg/dL (0.2-1.0) Aspartate Amino Transferase (AST) 323 U/L (<34) Alanine Aminotransferase (ALT) 71 U/L (7-40) Alkaline Phosphatase 332 U/L (46-116) Total Protein 6.2 g/dL (5.7-8.2) Albumin 3.1 g/dL (3.2-4.8) Vancomycin Level Trough 16.5 ug/mL (5-10) Plasma/Serum Blood Alcohol 6.2 mg/dL (<10) Test 04/28/25 17:20 04/28/25 16:24 Urine Color Light-yellow (Yellow) Urine Clarity Clear (Clear) Urine pH 5.5 (5.0-9.0) Urine Specific [place] 1.010 (1.001-1.035) Urine Protein Negative (Negative) Urine Ketones Negative (Negative) Urine Blood Negative /uL (Negative) Urine Nitrite Negative (Negative) Urine Bilirubin Negative (Negative) Urine Urobilinogen Normal mg/dL (Negative) Urine Leukocyte Esterase Negative /uL (Negative) Urine RBC 1 /hpf (0 - 3) Urine Microscopic WBC < 1 /HPF (0-3) Urine Squamous Epithelial Cells None seen /hpf (<5) Urine Bacteria None seen /hpf (None Seen) Urine Glucose 4+ mg/dL (Normal) Urine Opiates Screen Neg (NEGATIVE) Urine Fentanyl Screen Neg (NEGATIVE) Urine Barbiturates Screen Neg (NEGATIVE) Urine Phencyclidine Screen Neg (NEGATIVE) Urine Amphetamines Screen Neg (NEGATIVE) Urine Benzodiazepines Screen Neg (NEGATIVE) Urine Cocaine Screen Neg (NEGATIVE) Urine Cannabinoids Screen Neg (NEGATIVE) Prothrombin Time 11.4 sec (9.3-11.8) Prothrombin Time INR 1.08 (0.9-1.15) Activated Partial Thromboplast Time 32.0 SEC (24.5-34.5) Troponin I High Sensitivity 8 ng/L (</=54) Lipase 64 U/L (12-53) Other Laboratory Tests 05/01/25 06:17 Brief Hx & Hospital Course: 29 M with anxiety, chronic pancreatitis, alcohol use admitted for abdominal pain. likely infectious GE and alcohol withdrawal. started on Librium taper and ceft and flagyl. improved, able to tolerate diet. dc on levofloxacin and Librium. educated on alcohol use. resource given by public health social worker. stable to dc home Condition at Discharge: Good Final Diagnosis/Problems List Intractable abdominal pain Intractable nausea and vomiting Sirs with end-organ damage Gastroenteritis possible, infectious etiology likely Neutropenia Anemia Lactic acidosis Transaminitis Tachycardia Tachypnea Leukopenia Hyperbilirubinemia ALP elevated Hypoalbuminemia Glucosuria alcohol dependence Alcohol addiction Alcohol gastritis Alcohol pancreatitis history Type 2 diabetes Discharge Disposition: Home Discharge Instruct/Medications Diet: Regular Activity: No Restrictions, As Tolerated Medications: libirum as directed levofloxacin Discharge Statement: "Patient was advised to return to the ER or call 911 if any headaches, dizziness, shortness of breath, chest pain, abdominal pain, bleeding, fevers, or worsening of medical condition. Patient was counseled about treatment plan, medications, possible side effects, patientverbalized understanding. All questions were answered to the best of my ability. This discharge took greater then 30 minutes in planning, reviewing documentation, counseling the patient, and discussing with other team members." ASSESSMENT ASSESSMENT Assessment alcohol use alcohol withdrawal gastroenteritis Date of Service: May 01, 2025 Billing Provider: CRISTY DIAZ MD Common Visit Codes: [id number] DISCH DAY >30min CRISTY DIAZ MD May 01, 2025 13:39
[2025-05-02 10:29] LABS: Hepatitis B Surface Antigen Negative (Negative)
[2025-05-02 10:33] LABS: Hepatitis C Antibody Negative (Negative)
--- NOTE | 2025-05-02 12:33 | ECG ---
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
== END 2025-05-01 16:40 | disposition home or self-care (01) | DRG 249 ==
LOC: ER 15:53 → OVERFLOW 21:32 → TELE-EAST 04-29 22:19
PROVIDERS: ADMIT Student in an Organized Health Care Education/Training Program; ATTEND Student in an Organized Health Care Education/Training Program
DX: A09 Infectious gastroenteritis and colitis, unspecified (principal); R65.11 Systemic inflammatory response syndrome (SIRS) of non-infectious origin with acute organ dysfunction; E87.20 Acidosis, unspecified; D70.9 Neutropenia, unspecified; E88.09 Other disorders of plasma-protein metabolism, not elsewhere classified; E86.0 Dehydration; E11.9 Type 2 diabetes mellitus without complications; D64.9 Anemia, unspecified; K29.20 Alcoholic gastritis without bleeding; F10.239 Alcohol dependence with withdrawal, unspecified; K86.1 Other chronic pancreatitis; R74.01 Elevation of levels of liver transaminase levels; R74.8 Abnormal levels of other serum enzymes; G25.0 Essential tremor; F41.9 Anxiety disorder, unspecified; E80.6 Other disorders of bilirubin metabolism; Z79.4 Long term (current) use of insulin; Z79.899 Other long term (current) drug therapy
CPT/HCPCS: 36415; 71045; 74176; 76705; 80048; 80053; 80202; 80307; 80320; 81001; 82962; 83605; 83690; 83735; 84100; 84484; 85025; 85610; 85730; 86803; 87040; 87340; 93005; 96361; 96374; 99291; G0378; J1815; J2405; J3490